=== PATIENT | female | born 1960 | race Caucasian/White ===

== ENCOUNTER 2019-04-25 13:30 | Outpatient (CLI) | payer MEDICARE, MEDICAID, SELFPAY | END 2019-04-25 13:31 | disposition home or self-care (01) | LOC: RHEOACUTE 05-12 14:51 | PROVIDERS: Family Provider Family Medicine; PCP Family Medicine; Visit Provider Internal Medicine Rheumatology | DX: M81.0 Age-related osteoporosis without current pathological fracture (principal) | CPT/HCPCS: 96372; J0897 ==

== ENCOUNTER 2019-10-27 13:57 | Outpatient (CLI) | payer MEDICARE, MEDICAID, SELFPAY ==
[2019-10-27 14:00] VITALS: BP 130/79; PULSE 70; RESP 16; TEMP 36.6; O2SAT 97
[2019-10-27] MEDS: denosumab 60 mg SDV SUBCUT (14:19)
[2019-10-27 14:40] VITALS: BP 116/74; PULSE 69; RESP 16; TEMP 36.8; O2SAT 97
== END 2019-10-27 13:58 | disposition home or self-care (01) ==
LOC: RHEOACUTE 13:59
PROVIDERS: Family Provider Family Medicine; PCP Family Medicine; Visit Provider Internal Medicine Rheumatology
DX: M81.0 Age-related osteoporosis without current pathological fracture (principal)
CPT/HCPCS: 96372; J0897

== ENCOUNTER 2020-05-19 11:43 | Outpatient (CLI) | payer MEDICARE, MEDICAID, SELFPAY ==
[2020-05-19] MEDS: denosumab 60 mg SDV SUBCUT (12:15)
== END 2020-05-19 11:44 | disposition home or self-care (01) ==
LOC: ONCMED 11:49
PROVIDERS: Family Provider Family Medicine; PCP Family Medicine; Visit Provider Internal Medicine Medical Oncology
DX: M81.0 Age-related osteoporosis without current pathological fracture (principal)
CPT/HCPCS: 96372; J0897

== ENCOUNTER 2020-11-18 14:49 | Outpatient (CLI) | payer MEDICARE, MEDICAID, SELFPAY ==
[2020-11-18 14:59] VITALS: BP 155/75; PULSE 66; RESP 20; TEMP 36; O2SAT 97
[2020-11-18] MEDS: denosumab 60 mg SDV SUBCUT (15:06)
== END 2020-11-18 14:50 | disposition home or self-care (01) ==
LOC: ONCMED 14:53
PROVIDERS: PCP Family Medicine; Visit Provider Family Medicine
DX: M81.0 Age-related osteoporosis without current pathological fracture (principal); Z79.899 Other long term (current) drug therapy
CPT/HCPCS: 96372; J0897

== ENCOUNTER → 2020-12-24 09:23 | Outpatient (BNVA) | payer MEDICARE, MEDICAID, SELFPAY | PROVIDERS: PCP Family Medicine; Visit Provider Internal Medicine | DX: R79.82 Elevated C-reactive protein (CRP) (principal); M25.50 Pain in unspecified joint; Z79.899 Other long term (current) drug therapy; Z11.59 Encounter for screening for other viral diseases; F17.210 Nicotine dependence, cigarettes, uncomplicated | CPT/HCPCS: 36415; 99203; 99204 ==

== ENCOUNTER 2020-12-24 11:24 | Outpatient (CLI) | payer MEDICARE, MEDICAID, SELFPAY ==
--- NOTE | 2020-12-24 11:39 | XR_ITS ---
WS: [id number] RIGHT HAND: 2 VIEW(S) TECHNIQUE: PA and lateral. HISTORY: M25.50 - Pain in unspecified joint COMPARISON: None available. No acute fracture or dislocation. No soft tissue edema. Very mild interphalangeal joint space narrowing. No erosions. XR/XR hand RT 2V [id number] IMPRESSION: Mild interphalangeal joint space narrowing.
--- NOTE | 2020-12-24 11:39 | XR_ITS ---
WS: [id number] LEFT HAND: 2 VIEW(S) TECHNIQUE: PA and lateral. HISTORY: M25.50 - Pain in unspecified joint COMPARISON: None available. No acute fracture or dislocation. Mild interphalangeal joint space narrowing. No erosions or edema. Chronic fracture with healing at the ulnar styloid. XR/XR hand LT 2V [id number] IMPRESSION: Very mild interphalangeal joint space narrowing.
--- NOTE | 2020-12-24 11:39 | XR_ITS ---
WS: [id number] RIGHT FOOT: 2 VIEW(S) TECHNIQUE: AP and lateral. HISTORY: M25.50 - Pain in unspecified joint COMPARISON: None available. Diffuse mild osteopenia. Hammertoe deformities. Hardware in the distal fibula. No erosions. Mild interphalangeal joint space n arrowing. No soft tissue abnormality or bone destruction. XR/XR foot RT 2V [id number] IMPRESSION: Mild osteoarthritis. No erosions.
--- NOTE | 2020-12-24 11:39 | XR_ITS ---
WS: [id number] LEFT FOOT: 2 VIEW(S) TECHNIQUE: AP and lateral. HISTORY: M25.50 - Pain in unspecified joint COMPARISON: None available. No acute fracture or dislocation. Mild hammertoe deformities. No erosions. No soft tissue edema or subluxation. Small calcaneal spur. XR/XR foot LT 2V [id number] IMPRESSION: Small calcaneal spur. No erosions.
== END 2020-12-24 11:25 | disposition home or self-care (01) ==
LOC: RADWPI 11:39
PROVIDERS: PCP Family Medicine; Visit Provider Internal Medicine
DX: M25.50 Pain in unspecified joint (principal); Z11.59 Encounter for screening for other viral diseases
CPT/HCPCS: 73120; 73620; 82550; 82607; 82728; 82784; 83516; 83540; 83735; 84100; 86140; 86160; 86162; 86235; 86255; 86376; 86704; 86803; 87340

== ENCOUNTER 2021-05-04 09:36 | Outpatient (CLI) | payer MEDICARE, MEDICAID, SELFPAY ==
--- NOTE | 2021-05-04 09:53 | MM_ITS ---
WS: [id number] BILATERAL DIGITAL SCREENING MAMMOGRAPHY WITH CAD CLINICAL INFORMATION: SCREENING HISTORY: Screening mammogram. No current complaints. COMPARISON: TECHNIQUE: Bilateral CC and MLO views. FINDINGS: Scattered fibroglandular densities bilaterally. Single punctate calcification left breast. No suspici ous focal mass, asymmetry, calcifications, or architectural distortion. No evidence of malignancy. MM/[place] [id number] IMPRESSION: BI-RADS: 2-Benign FOLLOW UP: 1 Year Follow-up Recommend return to annual screening mammography.
== END 2021-05-04 09:37 | disposition home or self-care (01) ==
LOC: RADSHAW 09:49
PROVIDERS: PCP Family Medicine; Visit Provider Family Medicine
DX: Z12.31 Encounter for screening mammogram for malignant neoplasm of breast (principal)
CPT/HCPCS: 77067

== ENCOUNTER 2021-05-26 12:47 | Outpatient (CLI) | payer MEDICARE, MEDICAID, SELFPAY ==
[2021-05-26 13:01] VITALS: BP 144/79; PULSE 70; RESP 18; TEMP 36.5; O2SAT 97
[2021-05-26] MEDS: denosumab 60 mg SDV SUBCUT (13:12)
[2021-05-26 13:20] VITALS: BP 147/82; PULSE 72; RESP 18; TEMP 36.4; O2SAT 96
== END 2021-05-26 12:48 | disposition home or self-care (01) ==
PROVIDERS: PCP Family Medicine; Referring Provider Family Medicine; Visit Provider Family Medicine
DX: M81.0 Age-related osteoporosis without current pathological fracture (principal)
CPT/HCPCS: 96372; J0897

== ENCOUNTER → 2021-10-18 08:10 | Outpatient (BNVA) | payer MEDICARE, MEDICAID, SELFPAY | PROVIDERS: PCP Family Medicine; Referring Provider Family Medicine; Visit Provider Podiatrist Foot & Ankle Surgery | DX: L60.3 Nail dystrophy (principal); Q82.8 Other specified congenital malformations of skin; L60.8 Other nail disorders; E11.42 Type 2 diabetes mellitus with diabetic polyneuropathy; M20.41 Other hammer toe(s) (acquired), right foot; M20.42 Other hammer toe(s) (acquired), left foot | CPT/HCPCS: 11721; 17110; 99204 ==

== ENCOUNTER 2021-11-24 11:26 | Outpatient (CLI) | payer MEDICARE, MEDICAID, SELFPAY ==
[2021-11-24 12:06] VITALS: BP 166/75; PULSE 56; RESP 18; TEMP 36.2; O2SAT 97
[2021-11-24] MEDS: denosumab 60 mg SDV SUBCUT (12:11)
[2021-11-24 12:19] VITALS: BP 133/74; PULSE 56; RESP 18; TEMP 36.2; O2SAT 96
== END 2021-11-24 11:27 | disposition home or self-care (01) ==
PROVIDERS: PCP Family Medicine; Referring Provider Family Medicine; Visit Provider Family Medicine
DX: M81.0 Age-related osteoporosis without current pathological fracture (principal)
CPT/HCPCS: 96372; J0897

== ENCOUNTER → 2022-01-17 08:35 | Outpatient (BNVA) | payer MEDICARE, MEDICAID, SELFPAY | PROVIDERS: PCP Family Medicine; Visit Provider Podiatrist Foot & Ankle Surgery | DX: E11.8 Type 2 diabetes mellitus with unspecified complications (principal); M20.41 Other hammer toe(s) (acquired), right foot; M20.42 Other hammer toe(s) (acquired), left foot; L60.3 Nail dystrophy; E11.42 Type 2 diabetes mellitus with diabetic polyneuropathy; L60.8 Other nail disorders; Q82.8 Other specified congenital malformations of skin | CPT/HCPCS: 11721 ==

== ENCOUNTER → 2022-03-28 08:21 | Outpatient (BNVA) | payer MEDICARE, MEDICAID, SELFPAY | PROVIDERS: PCP Family Medicine; Visit Provider Podiatrist Foot & Ankle Surgery | DX: E11.42 Type 2 diabetes mellitus with diabetic polyneuropathy (principal); M20.41 Other hammer toe(s) (acquired), right foot; M20.42 Other hammer toe(s) (acquired), left foot; L60.3 Nail dystrophy; L60.8 Other nail disorders; Z79.4 Long term (current) use of insulin | CPT/HCPCS: 11721 ==

== ENCOUNTER → 2022-06-07 07:45 | Outpatient (BNVA) | payer MEDICARE, MEDICAID, SELFPAY | PROVIDERS: PCP Family Medicine; Referring Provider Family Medicine; Visit Provider Internal Medicine | DX: E11.42 Type 2 diabetes mellitus with diabetic polyneuropathy (principal); E78.2 Mixed hyperlipidemia; Z79.4 Long term (current) use of insulin | CPT/HCPCS: 99204 ==

== ENCOUNTER → 2022-07-04 07:52 | Outpatient (BNVA) | payer MEDICARE, MEDICAID, SELFPAY | PROVIDERS: PCP Family Medicine; Visit Provider Podiatrist Foot & Ankle Surgery | DX: E11.8 Type 2 diabetes mellitus with unspecified complications (principal); M20.41 Other hammer toe(s) (acquired), right foot; M20.42 Other hammer toe(s) (acquired), left foot; L60.3 Nail dystrophy; E11.42 Type 2 diabetes mellitus with diabetic polyneuropathy; L60.8 Other nail disorders; Z79.4 Long term (current) use of insulin | CPT/HCPCS: 11721 ==

== ENCOUNTER 2022-09-01 10:16 | Oncology outpatient (recurring) (ONCR) | payer MEDICARE, MEDICAID, SELFPAY ==
[2022-09-01] MEDS: denosumab 60 mg SDV SUBCUT (10:54)
== END 2022-09-13 23:59 | disposition home or self-care (01) ==
LOC: ONCMED 10:18
PROVIDERS: PCP Family Medicine; Visit Provider Family Medicine
DX: M81.0 Age-related osteoporosis without current pathological fracture (principal)
CPT/HCPCS: 96372; J0897

== ENCOUNTER → 2022-09-05 08:21 | Outpatient (BNVA) | payer MEDICARE, MEDICAID, SELFPAY | PROVIDERS: PCP Family Medicine; Visit Provider Internal Medicine | DX: E78.2 Mixed hyperlipidemia (principal); E11.42 Type 2 diabetes mellitus with diabetic polyneuropathy; Z79.4 Long term (current) use of insulin | CPT/HCPCS: 99214 ==

== ENCOUNTER → 2022-10-18 07:37 | Outpatient (BNVA) | payer MEDICARE, MEDICAID, SELFPAY | PROVIDERS: PCP Family Medicine; Visit Provider Podiatrist Foot & Ankle Surgery | DX: E11.8 Type 2 diabetes mellitus with unspecified complications (principal); M20.41 Other hammer toe(s) (acquired), right foot; M20.42 Other hammer toe(s) (acquired), left foot; L60.3 Nail dystrophy; E11.42 Type 2 diabetes mellitus with diabetic polyneuropathy; L60.8 Other nail disorders; Z79.4 Long term (current) use of insulin | CPT/HCPCS: 99213 ==

== ENCOUNTER 2023-01-15 06:00 | Outpatient (CLI) | payer MEDICARE, MEDICAID, SELFPAY | END 2023-01-15 06:01 | disposition home or self-care (01) | LOC: SPT 02-02 09:51 | PROVIDERS: PCP Family Medicine; Visit Provider Podiatrist Foot & Ankle Surgery | DX: Z46.89 Encounter for fitting and adjustment of other specified devices (principal); M72.2 Plantar fascial fibromatosis | CPT/HCPCS: 97760; L4397 ==

== ENCOUNTER → 2023-01-15 07:49 | Outpatient (BNVA) | payer MEDICARE, MEDICAID, SELFPAY | PROVIDERS: PCP Family Medicine; Visit Provider Podiatrist Foot & Ankle Surgery | DX: M20.41 Other hammer toe(s) (acquired), right foot (principal); M20.42 Other hammer toe(s) (acquired), left foot; L60.3 Nail dystrophy; E11.42 Type 2 diabetes mellitus with diabetic polyneuropathy; L60.8 Other nail disorders; M72.2 Plantar fascial fibromatosis; Z79.4 Long term (current) use of insulin | CPT/HCPCS: 11721; 99213 ==

== ENCOUNTER 2023-01-30 09:07 | Outpatient (CLI) | payer MEDICARE, MEDICAID, SELFPAY ==
--- NOTE | 2023-01-30 09:11 | NM_ITS ---
WS: [id number] NUCLEAR MEDICINE HIDA SCAN CLINICAL INFORMATION: ABDOMINAL PAIN TECHNIQUE: Following intravenous administration of 8.2 mCi of technetium 99m mebrofenin, images of th e abdomen were obtained over the course of 30 minutes. Next, gallbladder ejection fraction was determ ined by obtaining preprandial and one-hour postprandial images of the gallbladder following oral samina stion of Ensure at 30 minutes. COMPARISON: Ultrasound 01/10/2023 FINDINGS: Normal hepatic uptake and hepatic excretion. Gallbladder is visualized by 15 minutes. No evidence of acute cholecystitis. Normal common bile duct and small bowel activity. Gallbladder ejection fraction 81% within normal limits. No evidence of chronic cholecystitis. IMPRESSION: 1. No evidence of acute or chronic cholecystitis. 2. Gallbladder ejection fraction 81% within normal limits.
== END 2023-01-30 09:08 | disposition home or self-care (01) ==
LOC: RAD 09:09
PROVIDERS: PCP Family Medicine; Visit Provider Family Medicine
DX: R10.9 Unspecified abdominal pain (principal)
CPT/HCPCS: 78227; A9537

== ENCOUNTER 2023-04-25 14:05 | Oncology outpatient (recurring) (ONCR) | payer MEDICARE, MEDICAID, SELFPAY ==
[2023-04-25] MEDS: denosumab 60 mg SDV SUBCUT (14:55)
[2023-04-25 14:58] VITALS: BP 144/55; PULSE 66; RESP 17; O2SAT 97
== END 2023-05-16 23:59 | disposition home or self-care (01) ==
PROVIDERS: PCP Family Medicine; Visit Provider Family Medicine
DX: M81.0 Age-related osteoporosis without current pathological fracture (principal)
CPT/HCPCS: 96372; J0897

== ENCOUNTER → 2023-05-15 08:15 | Outpatient (BNVA) | payer MEDICARE, MEDICAID, SELFPAY | PROVIDERS: PCP Family Medicine; Visit Provider Podiatrist Foot & Ankle Surgery | DX: M20.41 Other hammer toe(s) (acquired), right foot (principal); M20.42 Other hammer toe(s) (acquired), left foot; L60.3 Nail dystrophy; E11.42 Type 2 diabetes mellitus with diabetic polyneuropathy; M72.2 Plantar fascial fibromatosis; Z79.4 Long term (current) use of insulin | CPT/HCPCS: 99204; 99213 ==

== ENCOUNTER 2023-06-27 11:16 | Outpatient (CLI) | payer OTHER, MEDICAID, SELFPAY ==
--- NOTE | 2023-06-27 11:20 | USCV_ITS ---
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
== END 2023-06-27 11:17 | disposition home or self-care (01) ==
LOC: RAD 11:16
PROVIDERS: PCP Family Medicine; Visit Provider Family Medicine
DX: I73.9 Peripheral vascular disease, unspecified (principal)
CPT/HCPCS: 93922

== ENCOUNTER 2023-07-17 12:18 | Emergency (ER) | payer MEDICARE, MEDICAID, SELFPAY ==
[2023-07-17 12:21] VITALS: BP 193/92; PULSE 60; RESP 16; TEMP 36.9; O2SAT 98; BMI 43.9
--- NOTE | 2023-07-17 12:33 | XR_ITS ---
WS: [id number] Examination: XR chest 1V portable [id number] Reason for Exam: dizzy Date: July 17, 2023 Comparison: Findings: Large nonenlarged on this AP portable film. The mediastinum not widened. The rosalind are not large There is no evidence of pulmonary edema or large pleural effusion. Impression: No acute lung process is appreciated.
--- NOTE | 2023-07-17 12:34 | ECG_ITS ---
[facility] Test Date: 2023-07-17 Pat Name: Nikki Guadalupe Department: Room: Gender: Female Dopster: : 1960 Requested By: Freddy Rodas Order Number: [id number] Olena MD: Garrison Coffey M.D. Measurements Intervals [place] Rate: 58 P: 42 VA: 184 QRS: 42 QRSD: 86 T: 90 QT: 384 QTc: 377 Interpretive Statements SINUS BRADYCARDIA Compared to ECG 04/03/2018 13:57:04 Sinus rhythm no longer present T-wave abnormality no longer present Electronically Signed On 07-17-2023 14:11:12 CDT by Garrison Coffey M.D. [id number]
[2023-07-17 12:59] LABS: Basophils # 0.1 10^3/uL (0.0-0.1); Basophils % 1.3 %; Eosinophils # 0.2 10^3/uL (0.0-0.8); Eosinophils % 3.7 %; Hematocrit 38.8 % (36-47); Lymphocytes # 1.5 10^3/uL (0.8-4.8); Lymphocytes % 23.6 %; Mean Corpuscular HGB Conc 34.8 g/dL (30-55); Mean Corpuscular Hemoglobin 32.1 pg (27-33); Mean Corpuscular Volume 92.4 fl (85-98); Mean Platelet Volume 10.8 fL (7.4-10.4); Monocytes # 0.5 10^3/uL (0.2-0.9); Monocytes % 8.5 %; Neutrophils # 3.88 10^3/uL (1.8-7.7); Neutrophils % 62.4 %; Nucleated Red Blood Cells % 0 %; Platelet Count 167 10^3/cmm (157-399); Red Cell Distribution Width 12.6 % (12.1-15.1); White Blood Count 6.22 10^3/uL (3.29-11.43)
[2023-07-17 13:12] LABS: Alanine Aminotransferase 16 U/L (0-33); Albumin Level 3.8 g/dL (3.5-5.2); Alkaline Phosphatase 83 U/L (35-105); Anion Gap 15.7 (5-19); Aspartate Amino Transferase 21 U/L (0-32); Blood Urea Nitrogen 16 mg/dL (8-23); Calcium 8.9 mg/dL (8.5-10.5); Carbon Dioxide 26 mmol/L (22-29); Chloride 104 mmol/L (98-107); Creatinine Clr Calc Pharmacy 136.6994; Globulin 2.6 g/dL (1.3-4.6); Glomerular Filtration Rate 101.6 mL/min (90-130); Glucose 250 mg/dL (65-115); Osmolality Calculated 302 mOsm/kg (285-295); Potassium 4.7 mmol/L (3.5-5.1); Sodium 141 mmol/L (136-145); Total Bilirubin 0.3 mg/dL (0.15-1.2); Total Protein 6.4 g/dL (6.6-8.7)
--- NOTE | 2023-07-17 13:37 | CT_ITS ---
WS: [id number] CT HEAD TECHNIQUE: Noncontrast CT of the head obtained from the skullbase to the vertex. CLINICAL INFORMATION: Vertigo, gait abnormality COMPARISON: 2019 DLP: 1117.[address] scans at [facility] use at least one of these dose optimization techniques: automated e xposure control; mA and/or kV adjustment per patient size (includes targeted exams where dose is matc hed to clinical indication); or iterative reconstruction. FINDINGS: No evidence of intracranial hemorrhage or mass effect. Ventricular system and basal cisterns are peña nt. Mild small vessel changes with mild parenchymal volume loss. No extra-axial fluid collections. No evidence of mass or mass effect. Intracranial vascular calcification. Paranasal sinuses and mastoid air cells are well aerated. .Normal visualized soft tissues. IMPRESSION: 1. No evidence of intracranial hemorrhage or mass effect. 2. No acute intracranial findings.
--- NOTE | 2023-07-17 13:52 | W.ED.DIZZY ---
HPI - Dizziness General: Chief Complaint: Dizziness Stated Complaint: dizzy Time Seen by Provider: 07/17/23 13:36 History of Present Illness: HPI Narrative: 62-year-old female with history of epilepsy insulin-dependent diabetes mellitus hyperlipidemia, and hypertension who presents the emergency room with vertigo symptoms. She said this has been going on for couple of months now. She is been to see her doctor and they thought maybe it was related to her epilepsy but it has persisted and become daily and lasting most the day now. She went to a walk-in clinic and they sent her to the emergency room. No focal motor deficits. No altered mental status. She is not hypertensive on presentation. Review of Systems Narrative: Constitutional symptoms: Negative except as documented in HPI. Skin symptoms: Negative except as documented in HPI. Eye symptoms: Negative except as documented in HPI. ENMT symptoms: Negative except as documented in HPI. Respiratory symptoms: Negative except as documented in HPI. Cardiovascular symptoms: Negative except as documented in HPI. Gastrointestinal symptoms: Negative except as documented in HPI. Genitourinary symptoms: Negative except as documented in HPI. Musculoskeletal symptoms: Negative except as documented in HPI. Neurologic symptoms: Negative except as documented in HPI. Psychiatric symptoms: Negative except as documented in HPI. Endocrine symptoms: Negative except as documented in HPI. [facility] ED PFSH: Family History Mother CAD (coronary artery disease) Brother CAD (coronary artery disease) Denies family history of Diabetes Social History Smoking and tobacco/nicotine status: current every day tobacco/nicotine user cigarettes Packs smoked per day: 1 Alcohol intake: never Physical Exam Narrative: EXAM NARRATIVE: General: Alert, no acute distress. Skin: Warm, dry. Head: Normocephalic, atraumatic. Neck: Supple, trachea midline. Eye: Extraocular movements are intact. Ears, nose, mouth and throat: mucosa moist. Cardiovascular: Regular, Normal peripheral perfusion. Respiratory: Lungs are clear to auscultation, respirations are non-labored, breath sounds are equal, Symmetrical chest wall expansion. Gastrointestinal: Soft, Nontender, Non distended, Normal bowel sounds. Musculoskeletal: Normal ROM, no deformity. Neurological: Alert and oriented, No focal neurological deficit observed. Psychiatric: Cooperative, appropriate mood & affect. Course Vital Signs: Vital signs: Vital Signs Temperature 98.4 F 07/17/23 12:21 Pulse Rate 62 07/17/23 14:00 Respiratory Rate 16 07/17/23 14:00 Blood Pressure 193/82 07/17/23 14:00 Pulse Oximetry 97 07/17/23 14:00 Oxygen Delivery Me thod Room Air 07/17/23 14:00 MDM - Dizziness Medical Decision Making Medical decision making: Differential diagnosis including but not limited to and based on the above HPI, review of systems and physical exam: In this patient with vertigo symptoms for 2 months would either be central or peripheral vertigo. It has been fairly persistent recently so we will rule out central with CT scan. Basic lab work is being done. Orders placed to evaluate differential diagnosis based on the above differential, HPI and physical exam Lab Review: Laboratory results were reviewed and interpreted by myself the emergency room physician. Lab work unremarkable. wbc 6. hgb 13.5 bun/cr 16 Chest x-ray: No acute process. No infiltrate. No pneumothorax. No cardiomegaly. This was reviewed and interpreted by myself the ER physician. CT head: No acute intracranial process. no intracranial hemorrhage, no evidence of infarct. no evidence of acute fracture.This was reviewed and interpreted by myself the ER physician. Reexamination: Patient remained stable. No focal motor deficits. No altered mental status. No increased work of breathing. Lab Data 07/17/23 12:48 07/17/23 12:48 Laboratory Results WBC 6.22 10^3/uL (3.29-11.43) 07/17/23 12:48 RBC 4.20 10^6/uL (3.85-5.65) 07/17/23 12:48 Hgb 13.50 g/dL (11.27-16.99) 07/17/23 12:48 Hct 38.8 % (36-47) 07/17/23 12:48 MCV 92.4 fl (85-98) 07/17/23 12:48 MCH 32.1 pg (27-33) 07/17/23 12:48 MCHC 34.8 g/dL (30-55) 07/17/23 12:48 RDW 12.6 % (12.1-15.1) 07/17/23 12:48 Plt Count 167 10^3/cmm (157-399) 07/17/23 12:48 MPV 10.8 fL (7.4-10.4) H 07/17/23 12:48 Neut % (Auto) 62.4 % 07/17/23 12:48 Lymph % (Auto) 23.6 % 07/17/23 12:48 Murray % (Auto) 8.5 % 07/17/23 12:48 Eos % (Auto) 3.7 % 07/17/23 12:48 Baso % (Auto) 1.3 % 07/17/23 12:48 Neut # (Auto) 3.88 10^3/uL (1.8-7.7) 07/17/23 12:48 Lymph # (Auto) 1.5 10^3/uL (0.8-4.8) 07/17/23 12:48 Murray # (Auto) 0.5 10^3/uL (0.2-0.9) 07/17/23 12:48 Eos # (Auto) 0.2 10^3/uL (0.0-0.8) 07/17/23 12:48 Baso # (Auto) 0.1 10^3/uL (0.0-0.1) 07/17/23 12:48 Nucleated RBC % (auto) 0 % 07/17/23 12:48 Nucleated RBCs # 0.0 /100WBC 07/17/23 12:48 Sodium 141 mmol/L (136-145) 07/17/23 12:48 Potassium 4.7 mmol/L (3.5-5.1) 07/17/23 12:48 Chloride 104 mmol/L (98-107) 07/17/23 12:48 Carbon Dioxide 26 mmol/L (22-29) 07/17/23 12:48 Anion Gap 15.7 (5-19) 07/17/23 12:48 BUN 16 mg/dL (8-23) 07/17/23 12:48 Creatinine 0.6 mg/dL (0.5-0.9) 07/17/23 12:48 GFR Calculation 101.6 mL/min (90-130) 07/17/23 12:48 Glucose 250 mg/dL (65-115) H 07/17/23 12:48 Calculated Osmolality 302 mOsm/kg (285-295) H 07/17/23 12:48 Calcium 8.9 mg/dL (8.5-10.5) 07/17/23 12:48 Total Bilirubin 0.3 mg/dL (0.15-1.2) 07/17/23 12:48 AST 21 U/L (0-32) 07/17/23 12:48 ALT 16 U/L (0-33) 07/17/23 12:48 Alkaline Phosphatase 83 U/L (35-105) 07/17/23 12:48 Total Protein 6.4 g/dL (6.6-8.7) L 07/17/23 12:48 Albumin 3.8 g/dL (3.5-5.2) 07/17/23 12:48 Globulin 2.6 g/dL (1.3-4.6) 07/17/23 12:48 All radiology interpretation(s) finalized by discharge Other Data Assessment and plan: - Discharged home - Discussed findings and plan with patient. Answered any questions. - All laboratory values were reviewed and interpreted personally by myself, the ER physician - All imaging was reviewed and interpreted personally by myself, the ER physician. - Evaluation and treatment of this problem were appropriate in the emergency setting Discharge Plan Discharge Patient Disposition: Home Clinical Impression: Vertigo Condition: Stable Prescriptions: New meclizine 25 mg tablet 25 mg PO QID PRN (Reason: dizziness) Qty: 20 0RF No Action Prolia 60 mg/mL syringe SUBCUT Patient Comments: twice a year Tresiba FlexTouch U-100 100 unit/mL (3 mL) insulin pen 75 unit SUBCUT DAILY insulin lispro [Humalog U-100 Insulin] 100 unit/mL solution 20 unit SUBCUT TID phenytoin sodium extended [Dilantin Extended] 100 mg capsule 200 mg PO TID Rx Instructions: 1 cap am, 2 cap noon, 3 cap pm carbamazepine 200 mg capsule, ER multiphase 12 hr 200 mg PO TID Rx Instructions: 1 tab am, 1 tab noon, 2 tabs pm metoprolol succinate 100 mg tablet extended release 24 hr 100 mg PO BID rosuvastatin 10 mg capsule, sprinkle 10 mg PO DAILY valsartan 320 mg tablet 160 mg PO DAILY Myrbetriq 25 mg tablet extended release 24 hr 25 mg PO DAILY omeprazole 20 mg capsule,delayed release(DR/EC) 40 mg PO DAILY cholecalciferol (vitamin D3) 50 mcg (2,000 unit) tablet 100 mcg PO DAILY Centrum Silver Women 8 mg iron-400 mcg-300 mcg tablet 1 tab PO DAILY gabapentin 300 mg capsule 600 mg PO TID (DME) Night Splint See Rx Instructions .Route .MEDSUPPLY Qty: 1 0RF Rx Instructions: As directed sertraline 100 mg tablet PO alprazolam 0.25 mg tablet 0.25 mg PO DAILY diclofenac sodium [Voltaren Arthritis Pain] 1 % gel 2 g topical QID Qty: 100 0RF Rx Instructions: apply to single elbow, wrist or hand; for hand includes palm/fingers/back of hand Mounjaro 2.5 mg/0.5 mL pen injector 2.5 mg SUBCUT Q7D 30 Days Qty: 2.5 0RF Rx Instructions: 2.5mg weekly for 1month; 5mg weekly for 1month; 7.5mg weekly and continue Mounjaro 5 mg/0.5 mL pen injector 5 mg SUBCUT Q7D 30 Days Qty: 2.5 0RF Rx Instructions: 5mg weekly for 1 month then 7.5mg weekly and continue Mounjaro 7.5 mg/0.5 mL pen injector 7.5 mg SUBCUT Q7D 30 Days Qty: 2.5 0RF Rx Instructions: 7.5mg weekly and continue (DME) Diabetic Shoes with 3 pair of custom accommodative insoles See Rx Instructions .Route .MEDSUPPLY Qty: 1 0RF Rx Instructions: As directed by Daily Living Medical Discharge Orders: Discharge ED (Routine); Ordered 07/17/23 Ordered By: Graciela Rodriguez Referrals: Andrew Solitario MD [Primary Care Provider] - (You have been screened and evaluated and felt safe for discharge. Health conditions do change or evolve sometimes and as such it is important that you follow up with your Primary Doctor to be re checked, 3-5 days is a general good time frame for follow up. You are always welcome to return to the ED for re assessment if your symptoms are worsening or you have new concerns) Discharge Diet: Usual diet Discharge Activity: Increase activity as tolerated Patient Instructions: Vertigo (ED) Coding Level of Care Code ED Certified Medicine Aide for Taty Springer
[2023-07-17] MEDS: sodium chloride 0.9% 1,000 ML 999 ML IV (13:58)
[2023-07-17] MEDS: meclizine 25 mg tablet 50 MG PO (13:58)
[2023-07-17 14:00] VITALS: BP 193/82; PULSE 62; RESP 16; O2SAT 97
[2023-07-17 14:43] VITALS: BP 185/79; RESP 18
== END 2023-07-17 14:44 | disposition home or self-care (01) ==
PROVIDERS: Emergency Medicine; Emergency Provider Emergency Medicine; PCP Family Medicine
DX: R42 Dizziness and giddiness (principal); Z79.4 Long term (current) use of insulin; F17.210 Nicotine dependence, cigarettes, uncomplicated
CPT/HCPCS: 36415; 70450; 71045; 80053; 85025; 93005; 99285; J7030; J8597

== ENCOUNTER 2023-12-26 13:15 | Outpatient (CLI) | payer MEDICARE, MEDICAID, SELFPAY ==
--- NOTE | 2023-12-26 13:16 | USCV_ITS ---
Nikki Guadalupe Age: 63 Gender: F : 1960 Exam Date: 12/26/2023 13:35 Ordering Phys: Rey Kimble MD ([email or web address]) Technologist: Exam Location[place] [facility] [place]ication: cp sob BP: 170 / 80 HR: 66 Rhythm: Sinus Technical Quality: Adequate MEASUREMENTS (Male / Female) Normal Values 2D ECHO LV Diastolic Diameter PLAX 5.1 cm 4.2 - 5.9 / 3.9 - 5.3 cm IVS Diastolic Thickness 1.5 cm 0.6 - 1.0 / 0.6 - 0.9 cm IVS Systolic Thickness 2.1 cm LVPW Diastolic Thickness 1.4 cm 0.6 - 1.0 / 0.6 - 0.9 cm LVPW Systolic Thickness 1.7 cm LVOT Diameter 2.0 cm LV Ejection Fraction 2D Teich 67.0 % LV Ejection Fraction MOD 2C 59.3 % LV Ejection Fraction 2C AL 61.1 % LA Diameter 3.8 cm RA Systolic Volume 4C AL 35.0 ml RA Systolic Volume 4C MOD 33.9 ml Aorta at Sinotubular Diameter 2.9 cm M-MODE LA Ao Ratio MM 1.4 AV Cusp Separation MM 2.3 cm DOPPLER MV Peak Velocity 118.0 cm/s MV Area PHT 2.4 cm squared Mitral E to A Ratio 1.3 TR Peak Velocity 148.0 cm/s TR Peak Gradient 8.8 mmHg TV Peak E Velocity 86.0 cm/s Right Atrial Pressure 3.0 mmHg Pulmonary Artery Systolic Pressu 11.8 mmHg PV Peak Velocity 117.0 cm/s FINDINGS Left Ventricle No regional wall motion abnormalities. Normal left ventricular size and systolic function, EF 61% . Right Ventricle The right ventricle is normal in size and function. Right Atrium The right atrium is normal in size. Left Atrium Normal left atrial size. Mitral Valve Thickened mitral valve. Trace mitral valve regurgitation. Aortic Valve Thickened aortic valve. Tricuspid Valve Trace tricuspid valve regurgitation. Pulmonic Valve Pulmonic valve not well visualized. Pericardium Normal pericardium without effusion. Aorta Normal ascending aorta dimension. IVC Inferior vena cava not visualized. CONCLUSIONS Normal left ventricular size and systolic function, EF 61% . No regional wall motion abnormalities. Thickened mitral valve. Trace mitral valve regurgitation. Trace tricuspid valve regurgitation. Thickened aortic valve. There is no pericardial effusion. There are no intracardiac masses. No similar previous studies are available for comparison Dr Rey Kimble MD [facility] (Electronically Signed) Final Date: 30 December 2023 18:32 S
--- NOTE | 2023-12-26 13:51 | CTR_ITS ---
PROCEDURE INFORMATION: Exam: CTA Head Without And With Contrast, Arteriography Exam date and time: 12/26/2023 2:09 PM Age: 63 years old Clinical indication: Dizziness and giddiness; Patient HX: Dizziness, unsteady gait, multiple falls TECHNIQUE: Imaging protocol: Computed tomographic angiography of the head without and with contrast. Exam focused on the arteries. 3D rendering (Not supervised by radiologist): MIP and/or 3D reconstructed images were created by the technologist. Radiation optimization: All CT scans at this facility use at least one of these dose optimization techniques: automated exposure control; mA and/or kV adjustment per patient size (includes targeted exams where dose is matched to clinical indication); or iterative reconstruction. Contrast material: OMNI 350; Contrast volume: 100 ml; Contrast route: INTRAVENOUS (IV); COMPARISON: CT head wo con* [id number] 07/17/2023 1:42 PM RADIATION DOSE METRICS: Total DLP (mGy-cm): 1306.65 FINDINGS: ANTERIOR CIRCULATION: Right internal carotid artery: Intracranial segment is patent with no significant stenosis or occlusion. No aneurysm. Right middle cerebral artery: No occlusion or significant stenosis. No aneurysm. Right anterior cerebral artery: No occlusion or significant stenosis. No aneurysm. Left internal carotid artery: Intracranial segment is patent with no significant stenosis. No aneurysm. Left middle cerebral artery: No occlusion or significant stenosis. No aneurysm. Left anterior cerebral artery: No occlusion or significant stenosis. No aneurysm. POSTERIOR CIRCULATION: Right vertebral artery: No occlusion or significant stenosis. No aneurysm. Left vertebral artery: Short-segment high-grade stenosis with likely focal occlusion, axial images 186 and 187 of series 9. No aneurysm. Basilar artery: No occlusion or significant stenosis. No aneurysm. Right posterior cerebral artery: No occlusion or significant stenosis. No aneurysm. Left posterior cerebral artery: origin. No occlusion or significant stenosis. No aneurysm. HEAD: Brain: No hemorrhage. No evidence of acute territorial infarction. Mild bilateral cerebral white matter hypoattenuation likely on the basis of chronic microvascular ischemic change. No mass effect. Cerebral ventricles: No ventriculomegaly. Bones: Unremarkable. No acute fracture. Paranasal sinuses: Visualized sinuses are normal. No fluid levels. Mastoid air cells: Visualized mastoids are normal. No mastoid effusion. Soft tissues: Unremarkable. PROCEDURE INFORMATION: Exam: CTA Neck With Contrast Exam date and time: 12/26/2023 2:09 PM Age: 63 years old Clinical indication: Dizziness and giddiness; Patient HX: Dizziness, unsteady gait, multiple falls TECHNIQUE: Imaging protocol: Computed tomographic angiography of the neck with contrast. Exam focused on the cervical segments of the vasculature. 3D rendering (Not supervised by radiologist): MIP and/or 3D reconstructed images were created by the technologist. Radiation optimization: All CT scans at this facility use at least one of these dose optimization techniques: automated exposure control; mA and/or kV adjustment per patient size (includes targeted exams where dose is matched to clinical indication); or iterative reconstruction. Contrast material: OMNI 350; Contrast volume: 100 ml; Contrast route: INTRAVENOUS (IV); COMPARISON: 1. CT Thoracic Spine wo IV* [id number] 03/11/2019 3:[address] cervical spin wo con* [id number] 03/11/2019 3:[address] head wo con* [id number] 07/17/2023 1:42 PM RADIATION DOSE METRICS: Total DLP (mGy-cm): 1306.65 FINDINGS: Right common carotid artery: No stenosis. No dissection or occlusion. Right internal carotid artery: Mild atherosclerotic stenosis of the extracranial segment. No dissection or occlusion. Right external carotid artery: Mild proximal atherosclerotic stenosis. Left common carotid artery: No stenosis. No dissection or occlusion. Left internal carotid artery: No stenosis of the extracranial segment. No dissection or occlusion. Left external carotid artery: No occlusion or stenosis of the origin. Right vertebral artery: Limited evaluation proximally in the setting of streak artifact. No convincing stenosis, dissection or occlusion. Left vertebral artery: Limited evaluation proximally in the setting of streak artifact. No convincing stenosis, dissection or occlusion. Lymph nodes: Prominent paratracheal lymph nodes are stable from 2019. Soft tissues: Unremarkable. No significant soft tissue swelling. Bones/joints: Severe compression deformity of the T4 vertebral body appears chronic, progressed from 2019. Mild superior T3 vertebral body compression is stable. Degenerative change along the cervical spine with prior C4-C5 ACDF. Lungs: Mild emphysematous change at the imaged upper lungs. CT/CT angio headneck* [id number] IMPRESSION: 1. Short-segment high-grade left vertebral artery stenosis with likely focal occlusion. 2. No CT evidence of acute territorial infarction, hemorrhage, or mass effect. IMPRESSION: 1. Mild atherosclerotic stenosis of the proximal right ICA and ECA. 2. Chronic appearing severe T4 vertebral body compression deformity progressed from 2019. REFERENCES: NASCET CRITERIA. The degree of stenosis in the cervical segment of the internal carotid artery is based on NASCET criteria. Normal is no stenosis. Mild is less than 50% stenosis. Moderate is 50-69% stenosis. Severe is 70% to 99% stenosis. Total occlusion is no detectable patent lumen.
[2023-12-26] MEDS: iohexol 350 mg/mL 500 mL Btl (per mL) IV (14:28)
== END 2023-12-26 13:16 | disposition home or self-care (01) ==
LOC: RAD 13:16
PROVIDERS: PCP Family Medicine; Visit Provider Family Medicine
DX: I65.02 Occlusion and stenosis of left vertebral artery (principal); S22.040S Wedge compression fracture of fourth thoracic vertebra, sequela; M43.22 Fusion of spine, cervical region; X58.XXXA Exposure to other specified factors, initial encounter; R06.09 Other forms of dyspnea; R07.89 Other chest pain
CPT/HCPCS: 36415; 70496; 70498; 80048; 83880; 93306

== ENCOUNTER 2024-01-24 09:43 | Outpatient (CLI) | payer MEDICARE, MEDICAID, SELFPAY ==
--- NOTE | 2024-01-24 | ECG_ITS ---
[facility] [employer] Test Date: 2024-01-24 Pat Name: Nikki Guadalupe Department: Room: Gender: Female Childcare Provider: : 1960 Requested By: Rey Kimble Order Number: [id number] Olena MD: Rey Kimble M.D. Interpretive Statements PROCEDURE: At the baseline, the EKG revealed normal sinus rhythm with some diffuse nonspecific ST-T changes. The baseline heart was 65 bpm with a blood pressue of 156/89 mm of Hg Lexiscan was infused over a period of 20 seconds. A total of 0.4 milligrams of Lexiscan was infused. The stress phase was continued for a total of 5 minutes. Heart rate at the end of the stress phase was left anterior descending artery bpm with a blood pressure 193/87 mm of Hg. The EKG at the peak infusion revealed no significant changes. Sestamibi was injected 20 seconds after the Lexiscan infusion. Heart rate at the end of the recovery phase was 79 bpm with a blood pressure of 190/78 mm of Hg. CONCLUSION: 1. No significant EKG changes with the LexiScan infusion 2. No LexiScan induced chest pain or cardiac arrhythmia 3. Hypertensive response to Lexiscan infusion 4. Sestamibi/sestamibi perfusion scan pending; see separate report. Lung unchanged pre/post procedure; Intraprocedure shortess of breath; Symptoms resoled by discharge Electronically Signed On 01-27-2024 19:49:13 CDT by Rey Kimble M.D. [email or web address]
[2024-01-24 10:21] VITALS: BMI 42.3
--- NOTE | 2024-01-24 10:24 | NMCV_ITS ---
NM raji perf SPECT r/s* [id number] Nikki Guadalupe Age: 63 Gender: F : 1960 Exam Date: 01/24/2024 10:24 Ordering Phys: Rey Kimble MD ([email or web address]) Technologist: LANNY Castro Exam Location: [facility] Indications: cp STRESS TEST Please see separate stress test report [facility] for full findings IMAGE PROTOCOL Rest/Stress 1 Lexiscan Day Radiopharmaceutical Dose (mCi) Administration Site Administered by Rest: Tc-99m 10.6 IV Cele Sorenson, HYDROELECTRIC POWERPLANT SUPERVISOR Sestamibi Stress:Tc-99m 33 IV Cele Shaygle, HYDROELECTRIC POWERPLANT SUPERVISOR Sestamibi Rest: 01/24/2024 60 Discovery 630 Stress: 01/24/2024 30 Discovery 630 0.4mg Lexiscan. Images obtained in supine and prone position. SPECT RESULTS Technical Quality: Good Raw Data Analysis: Normal Image Corrections: No attenuation or motion correction applied Summed Stress Score: 9 Summed Rest Score: 3 Summed Difference Score: 7 PERFUSION FINDINGS Moderate area of moderately decreased tracer uptake involving the basal and mid inferolateral, mid and apical inferior and apical septal segments. Significant reversibility was noted in these regions at rest. FUNCTIONAL RESULTS (calculated via Gated SPECT) Stress Image LV EF (%): 72 Stress EDV (mL):93 TID: 1.08 Stress ESV (mL):26 FUNCTIONAL FINDINGS: Segmental wall motion analysis revealing no gross wall motion abnormalities IMPRESSIONS 1. Myocardial perfusion imaging revealing moderate area of reversible defect involving the inferior and inferolateral and apical regions suggesting ischemia predominantly in the distribution of the circumflex artery with some involvement of the right coronary artery and left anterior descending artery. 2. Normal LV ejection fraction of 72%. 3. LV wall motion analysis revealing no gross wall motion abnormalities. 4. Normal LV volume No similar previous studies are available for comparison Dr Rey Kimble MD FAC (Electronically Signed) Final Date: 25 January 2024 13:48 S
[2024-01-24] MEDS: regadenoson 0.4 Mg/5 ml Syringe IVP (12:06)
[2024-01-24 14:49] VITALS: BP 142/88; PULSE 90
== END 2024-01-24 09:44 | disposition home or self-care (01) ==
PROVIDERS: PCP Family Medicine; Visit Provider Internal Medicine Cardiovascular Disease
DX: Z98.61 Coronary angioplasty status (principal); R06.02 Shortness of breath
CPT/HCPCS: 36415; 78452; 93017; 96374; A9500; J2785

== ENCOUNTER → 2024-02-05 10:26 | Outpatient (BNVA) | payer MEDICARE, MEDICAID, SELFPAY | PROVIDERS: PCP Family Medicine; Visit Provider Nurse Practitioner Family | DX: I10 Essential (primary) hypertension (principal); R94.39 Abnormal result of other cardiovascular function study; R07.89 Other chest pain; R06.09 Other forms of dyspnea; I73.9 Peripheral vascular disease, unspecified | CPT/HCPCS: 36415; 80048; 83880; 85025; 85610; 86850; 86900; 99214 ==

== ENCOUNTER 2024-02-12 07:29 | Outpatient (CLI) | payer MEDICARE, MEDICAID, SELFPAY ==
[2024-02-12] VITALS (8 sets, daily range): BP systolic 172–187; BP diastolic 73–79; PULSE 62–72; RESP 12; TEMP 36.7–36.8; O2SAT 95–100; BMI 42.9
--- NOTE | 2024-02-12 07:00 | XACV_ITS ---
Exam Room: 2 Ht: 170 cm Wt: 124 kg BSA: 2.49 m2 Gender: Female : 1960 Any Known Allergies: Other Exam Priority: Routine Procedure(s): Procedure Description: Diagnostic procedure Procedure Description: PCI procedure Procedure Description: Left Heart Catheterization Procedure Description: Left ventriculography Procedure Description: Drug Eluting Coronary Stent Procedure Description: PTCA Procedure Description: Miscellaneous Procedure Description: ACT Procedure Description: Coronary Angiography Lamin BOOKER; Diagnostic Cath Status: Elective Diagnostic Findings * The left main is a medium caliber vessel with a 20% tapering narrowing distally. Minimal calcification was noted. * The left descending artery is a medium caliber vessel which was found to have mild to moderate diffuse calcification in the proximal and the mid segment. 20 to 30% diffuse irregular narrowing were noted in the proximal of the mid segment of the artery. No significant stenotic lesions. The first diagonal branch was found to have mild to moderate diffuse disease in the proximal segment. No significant stenotic lesions were noted. * The left circumflex artery is a medium caliber vessel which was found to have around 40 to 50% ostial narrowing. The first OM branch was found to have 40 to 50% diffuse narrowing. The distal circumflex trifurcates to give off the PDA branch. Mild diffuse disease was noted in the distal vessels. * The intermedius artery, high diagonal branch, was found to have 60 to 70% ostial stenosis. Mild diffuse disease was noted in the distal vessel. * The right coronary artery is a nondominant vessel which is was found to have mild to moderate diffuse disease in the mid and distal segments. PCI Status: Elective PCI Indication: Other Interventional Findings * IFR: After equalizing the distal and proximal pressure of IFR wire proximal to the lesion, proximal ramus intermedius lesion was crossed with IFR wire. Spot IFR was noted to be 0.89 which is abnormal and positive for hemodynamically significant ischemia. Pullback gradient was noted to be significant. We therefore decided to proceed with coronary intervention of ramus intermedius based upon the IFR abnormality.. * Successful PCI to ostial ramus intermedius. Lesion was prepared with 2.0 x 12mm MDT EUPHORA balloon, followed by deployment of CHRIS 2.25 x 15 mm stent posted at high ALEKSANDR of 12 mm. Stent was then post-dilated with serial dilatation of NC Euphora 2.5 x 12 at 12 ALEKSANDR in its entire length to ensure proper approximation. Excellent angiographic result with BENITA-3 flow was achieved. . Conclusions 1. 69-year-old white female with a history of hypertension, type 2 diabetes, dyslipidemia, obesity, presenting with complaints of exertional shortness of breath and chest tightness/heaviness. She had a Myocardial perfusion imaging which revealed a small to moderate area of reversible defect mostly involving the distribution of the circumflex artery. In view of the patient's ongoing symptoms and preop status, in order to further evaluate her coronary status, a cardiac catheterization was recommended. Patient underwent left heart catheterization with left and right coronary angiogram and LV angiogram today. The findings are as follows. 2. 1. Mild to moderate diffuse coronary calcification involving the proximal and mid LAD, proximal circumflex and the left main artery. Moderately severe ostial narrowing was noted in the intermedius branch artery. Right coronary artery was found to be nondominant. Mild to moderate diffuse disease was noted in the other vessels. Normal LV ejection fraction by LV angiogram. LVEDP of 18 mmHg. 3. I reviewed and discussed the cardiac catheterization data with Dr Portillo. Thought to be appropriate to consider. IFR of the intermedius artery ostial lesion. Consider PCI if it is appropriate. Recommendations * 1-Return to inpatient for close monitoring and routine cath care 2-Risk factor modification for secondary prevention 3-Statin and aspirin 81 mg life-long, if tolerated 4-Patient was pre-loaded with 600 mg of Plavix, continue Plavix 75mg p.o. daily for at least one year. We will assess at the end of one year again to continue if further or not 5-Continue optimal medical management 6-Follow up with Dr. Kimble in four weeks and your primary care in 10 days. Interventional RX Recommendation: PCI w/o planned CABG Diagnostic RX Recommendation: other cardiac therapy w/o CABG/PCI Ventriculography Ejection Fraction: 60.0 % LV EDP: 18 mmHg Left Ventriculography Findings: * The LV gram was performed in the AVENDAÑO projection. The LV cavity appeared to be normal size. LV ejection fraction was around 60%. LVEDP was 18 mmHg. No filling defects are noted. No significant mitral valve prolapse or mitral regurgitation. Pressures Phase:Rest AO : 182 / 75 ( 116 ) @ 10:36:00 AM 167 / 61 ( 103 ) @ 10:49:00 AM 169 / 62 ( 105 ) @ 10:49:00 AM 158 / 55 ( 90 ) @ 11:02:00 AM LV : 170 / -13 / 18 @ 10:48:00 AM 173 / -8 / 21 @ 10:49:00 AM 172 / -8 / 22 @ 10:49:00 AM Valves Phase:DefaultPhase AV : 5.0 @ 10:58:03 AM 5.0 @ 10:58:03 AM AV Mean Gradient: 9.0 @ 10:58:03 AM 9.0 @ 10:58:03 AM Clinical Evaluation EBL: 5mL-10mL Procedural Details Procedure Consent Obtained. Pre-Procedure Time Out. Identified patient by full name and date of as verbalized by the patient/guarantor. Does the consent match the physician's order: Yes. Accurate & Complete Informed Consent: Yes. Inpatient/Outpatient History & Physical on Chart: Yes. If H&P is completed, is and addenduem needed: No; If yes, is the addendum complete: N/A. Visualize and Verify Site with Patient/Guarantor: N/A. Relevant Radiology Images available: N/A. The risks, benefits, and alternatives of sedation and/or procedure were discussed by physician. The patient agrees to continue. Procedure started. [facility] Clinical Fraility Score: 3: Managing Well. Butting Saw Operator Indications: Pre-operative Evaluation. Correct patient, site and procedure confirmed by cath team. Current diagnosis: Pre-op clearance, Abnormal stress test. PERRLA. Strong, equal hand sr. consultant bilaterally. Lungs clear x 5 lobes. IV Site on Arrival: 20 gauge in the right anticubital. IV Fluids: 0.9% NaCl at KVO. 0 mL infused prior to cath lab radiology technician. Pre Procedural Pulses: bilateral radial was 3+. Pre Procedural Pulses: bilateral dorsalis pedis was 2+. Pre Procedural Pulses: bilateral posterior tibial was 1+. Oxygen started at 2liters/min via nasal canula. right radial was prepped with chloroprep then draped in the usual sterile fashion. right groin was prepped with chloroprep then draped in the usual sterile fashion. Baseline sample Acquired. HR: 61 BPM. Physician notified. Physician arrived. Admit Source: Out Patient. Physician scrubbed in. Immediate Pre-Procedure Time Out. Correct Patient: Yes; Correct Procedure: Yes; Correct Site: Yes; Correct Patient Position: Yes; Correct Supplies: Yes; Dried Flammable Prep: Yes; Blood Products Available: Yes;. Lidocaine 1% infiltrated to the right radial. An attempt to gain access to the right radial artery was unsuccessful. Manual pressure was held as needed to stop the bleeding. Unable to obtain radial access. MD attempting to gain access in the Femoral artery. Lidocaine 1% infiltrated to the right groin. An attempt to gain access to the right femoral artery was unsuccessful. Manual pressure was held as needed to stop the bleeding. Arterial access obtained. A 5 brit[place] virgin islander JL4 catheter in over standard wire. Wire out. Multiple views taken of left coronary artery. Catheter removed over the standard wire. A 5 brit[place] islander JR4 catheter in over wire. Multiple views taken of right coronary artery. Catheter removed over the standard wire. A 5 brit[place] islander Angled Pig catheter in over wire. Wire out. EDP Sample taken: LV 170/-14,18; HR: 64 BPM; SpO2: 97%. LV gram performed in AVENDA[place]O @ 10 mL/second for a total of 30 mL. EDP Sample taken: LV 173/-9,21; HR: 65 BPM; SpO2: 97%. Pullback taken: LV 172/-9,22; AO 167/61(103); Mean: 9mmHg, Peak to Peak: 5mmHg, SEP: 18sec/min; HR: 65 BPM; SpO2: 96%. Catheter removed over the standard wire. Dr. Portillo called to lab to review cine films. Side port of sheath attached to Normal Saline flush at KVO to maintain patency. Physician scrubbed out. Dr. Portillo scrubbed in to perform iFR. 6 british virgin islander XB 3.5 guide catheter was inserted over the wire. Wire out. iFR pressure wire advanced through guide catheter. Normalized in aorta. iFR wire advanced past lesion in ostial ramus intermedius artery. IFR of ostial ramus 0.87 mmhg. iFR wire redirected to ostial circumflex. Wire advanced across lesion. iFR ostial circumflex 1.18. ACT drawn. Results 350 seconds. Therapeutic limits - pre-heparin administration 90-150 seconds and monitoring heparin during a vascular procedure >250 seconds. BMW guidewire was advanced through the guide catheter to lesion in the ostial ramus intermedius. Guidewire advanced across lesion. Balloon inserted to lesion in the ostial ramus artery. Inflation number : 1 A AB MINI TREK 2.00X12 RX BALLOON was prepped and advanced across the Ramus , then inflated to 14 ALEKSANDR for 0:15 seconds. Balloon out. Stent inserted to lesion in the ostial ramus artery. Inflation Number : 2 A MANNIE R CHRIS 2.25X15 YASMIN -Lot Number# [id number] EXP 06-26-2024 was prepped and advanced across the Ramus. The stent was deployed at 12 ALEKSANDR for 0:15 seconds. Stent balloon out over wire. Results checked. Balloon inserted to lesion in the ostial ramus. Inflation number : 3 A T NC EUPHORA RX 2.38Q04DF BALLOON was prepped and advanced across the Ramus , then inflated to 8 ALEKSANDR for 0:17 seconds. Inflation number: 4 The MDT NC EUPHORA RX 2.14M11MD BALLOON was reinflated across the Ramus, to 10 ALEKSANDR for 0:16 seconds. Inflation number: 5 The T ANI EUPHORA RX 2.01J10RK BALLOON was reinflated across the Ramus, to 10 ALEKSANDR for 0:09 seconds. Balloon out. Results checked. BMW wire out. Results checked. ACT drawn. Results 342 seconds. Therapeutic limits - pre-heparin administration 90-150 seconds and monitoring heparin during a vascular procedure >250 seconds. Guide catheter out. A Right femoral angiogram was performed to determine safe placement of closure device. Lidocaine 1% infiltrated to the right groin. Post Procedure: Pulses reassessed and unchanged. PERRLA. Strong, equal hand sr. consultant bilaterally. No VTE prophylaxis required. Medication's Wasted: Nitro = 49.8 mg. Medication's Wasted: Heparin = 2500 units. Total IV fluids: 100 mL. A Angio-Seal VIP ([place]) was successful obtaining hemostatsis at the Right Femoral artery insertion site. LOT # [id number] EXP 08-28-2024. Post-op diagnosis: Significant stenosis of Ramus intermedius artery. Status post PCI placment of 1 stent. Complications: None. Estimated blood loss: 5mL-10mL. Responsiveness - Normal response to verbal stimuli; alert and oriented, PERRLA. Airway - Unaffected, no intervention required; spontaneous ventilation. Circulation: W/N/L, pulses unchanged. Nausea/Vomiting: No. Procedure completed. Patient transferred by bed to ICU. Vital chart was stopped. Access Site Site: Right Femoral artery Sheath Size: 6 Fr Hemostasis Method: Angio-Seal VIP ([place]) Hemostasis Success: Successful Procedure Medications Start: 9:10 AM Stop: 9:10 AM Medication: Versed Amount: 1 mg Route: I.V. Start: 9:10 AM Stop: 9:10 AM Medication: Fentanyl Amount: 50 mcg Route: I.V. Start: 9:14 AM Stop: 9:14 AM Medication: Versed Amount: 1 mg Route: I.V. Start: 9:18 AM Stop: 9:18 AM Medication: Fentanyl Amount: 25 mcg Route: I.V. Start: 9:26 AM Stop: 9:26 AM Medication: Fentanyl Amount: 25 mcg Route: I.V. Start: 9:26 AM Stop: 9:26 AM Medication: Versed Amount: 1 mg Route: I.V. Start: 9:30 AM Stop: 9:30 AM Medication: Versed Amount: 1 mg Route: I.V. Start: 9:35 AM Stop: 9:35 AM Medication: Heparin Amount: 1500 units Route: I.V. Start: 9:36 AM Stop: 9:36 AM Medication: Fentanyl Amount: 25 mcg Route: I.V. Start: 9:47 AM Stop: 9:47 AM Medication: Fentanyl Amount: 25 mcg Route: I.V. Start: 9:55 AM Stop: 9:55 AM Medication: Hydralazine Amount: 10 mg Start: 9:57 AM Stop: 9:57 AM Medication: Versed Amount: 1 mg Route: I.V. Start: 10:03 AM Stop: 10:03 AM Medication: Heparin Amount: 7000 units Route: I.V. Start: 10:07 AM Stop: 10:07 AM Medication: Fentanyl Amount: 25 mcg Route: I.V. Start: 10:17 AM Stop: 10:17 AM Medication: Versed Amount: 1 mg Route: I.V. Start: 10:21 AM Stop: 10:21 AM Medication: Plavix Amount: 600 mg Route: P.O. Start: 10:36 AM Stop: 10:36 AM Medication: Nitrogylcerin Amount: 200 mcg Route: I.C. I, the attending physician, have reviewed and verified all procedure medications. Yes, all medications given per verbal order History/Risk Factors Hypertension: Yes Dyslipidemia: Yes Peripheral Arterial Disease (PAD): No Myocardial Infarction ([place]): No Obesity: Yes Renal Disease: No Tobacco Use: Former Prior Interventions PCI: No CABG: No Valve Surgery: No Report Signatures Interventional Workflow Finalized by Sandra Portillo MD on 03/09/2024 11:07 PM Diagnostic Workflow Finalized by Dr Rey Kimble MD [facility] on 02/12/2024 04:58 PM
[2024-02-12] MEDS: aspirin 325 mg Tablet PO (07:50)
[2024-02-12] MEDS: diphenhydrAMINE 50 mg Capsule PO (07:50)
--- NOTE | 2024-02-12 08:34 | P.HP_ITS ---
Providers/Chief Complaint Primary Care Provider: Andrew Solitario MD Chief Complaint: R94.39 History of Present Illness Nikki Guadalupe is a 63 year old female with a history of hypertension, type 2 diabetes and dyslipidemia, presenting with complaints of exertional dyspnea and chest tightness. She is scheduled for an abnormal surgery. As part of the preop evaluation, she had a Myocardial perfusion imaging which was found to be abnormal. For further evaluation of her coronary status, a cardiac catheterization was recommended. The Perfusion scan report as mentioned below. 1. Myocardial perfusion imaging revealing moderate area of reversible defect involving the inferior and inferolateral and apical regions suggesting ischemia predominantly in the distribution of the circumflex artery with some involvement of the right coronary artery and left anterior descending artery. 2. Normal LV ejection fraction of 72%. 3. LV wall motion analysis revealing no gross wall motion abnormalities. 4. Normal LV volume No similar previous studies are available for comparison Review of Systems Narrative: CONSTITUTIONAL: No fever or chills. EYES: No blurring of vision or other visual disturbances lately. ENT: No hoarseness of voice, auditory disturbances or sore throat. CARDIOVASCULAR: As mentioned above. RESPIRATORY: Patient has significant dyspnea on exertion. GASTROINTESTINAL: No hematemesis or melena. GENITOURINARY: No dysuria or hematuria. INTEGUMENTARY: No skin rashes or history of skin cancer. NEURO: No transient ischemic attacks or amaurosis. PSYCHIATRIC: No history of psychosis or major depression. HEMATOLOGIC: No bleeding disorders or significant anemia. ENDOCRINE: No history of polyuria or polydipsia. MUSCULOSKELETAL: No recent joint pain or swelling. ALLERGY/IMMUNOLOGY: As mentioned above. Medications/Allergies Home Medications Medication Instructions Recorded Confirmed Last Taken Type carbamazepine 200 mg See Rx Instructions .Route .COMPLEX 12/24/20 02/11/24 02/11/24 History capsule,extended release [id number] insulin degludec 100 unit/mL (3 40 unit SUBCUT DAILY 12/24/20 02/11/24 02/11/24 History mL) subcutaneous pen (Tresiba FlexTouch U-100 insulin) insulin lispro 100 unit/mL 15 unit SUBCUT TID 12/24/20 02/11/24 02/11/24 History subcutaneous solution (Humalog U-100 Insulin) mirabegron 25 mg tablet,extended 25 mg PO DAILY 12/24/20 02/11/24 02/11/24 Histo ry release 24 hr (Myrbetriq) omeprazole 20 mg capsule,delayed 40 mg PO DAILY 12/24/20 02/11/24 02/11/24 History release phenytoin sodium extended 100 mg See Rx Instructions .Route .COMPLEX 12/24/20 02/11/24 02/11/24 History capsule (Dilantin Extended) valsartan 320 mg tablet 160 mg PO DAILY 12/24/20 02/11/24 02/12/24 06:00 History denosumab 60 mg/mL subcutaneous See Rx Instructions .Route .COMPLEX 01/19/21 02/11/24 02/11/24 History syringe (Prolia) Night Splint #1 ea 01/15/23 02/05/24 Unknown Rx sertraline 100 mg tablet 50 mg PO DAILY 05/15/23 02/11/24 02/11/24 History Diabetic Shoes with 3 pair of #1 ea 06/19/23 02/05/24 Unknown Rx custom accommodative insoles calcium 600 mg (as 1 tab PO DAILY 07/17/23 02/11/24 02/11/24 History carbonate)-vitamin D3 5 mcg (200 unit) tablet gabapentin 600 mg tablet 1,200 mg PO TID 07/17/23 02/11/24 02/11/24 History rosuvastatin 10 mg tablet 10 mg PO DAILY 07/17/23 02/11/24 02/11/24 History carvedilol 25 mg tablet 25 mg PO BID 90 days #180 tabs 12/26/23 02/11/24 02/12/24 06:00 Rx amlodipine 5 mg tablet 5 mg PO DAILY #30 tabs 01/23/24 02/11/24 02/12/24 06:00 Rx furosemide 20 mg tablet (Lasix) 20 mg PO DAILY #90 tabs 02/01/24 02/11/24 02/11/24 Rx potassium chloride 8 mEq 8 meq PO DAILY #90 caps 02/01/24 02/11/24 02/11/24 Rx capsule,extended release diclofenac sodium 1 % topical gel 2 g topical QID PRN Pain, Mild 02/11/24 02/11/24 02/11/24 History (Voltaren Arthritis Pain) meclizine 25 mg tablet 50 mg PO QID PRN dizziness 02/11/24 02/11/2402/11/24 06:00 History Allergies Allergy/AdvReac Type Severity Reaction Status Date / Time bupropion [From Wellbutrin] Allergy RASH Verified 02/12/24 08:15 clarithromycin [From Biaxin] Allergy RASH Verified 02/12/24 08:15 dexamethasone Allergy RASH Verified 02/12/24 08:15 gramicidin D Allergy RASH Verified 02/12/24 08:15 hydrocortisone Allergy RASH Verified 02/12/24 08:15 neomycin Allergy RASH Verified 02/12/24 08:15 [From Maxitrol (neomycin sulf)] polymyxin B Allergy RASH Verified 02/12/24 08:15 simvastatin Allergy RASH Verified 02/12/24 08:15 sulfadiazine Allergy RASH Verified 02/12/24 08:15 tetracycline Allergy RASH Verified 02/12/24 08:15 PFSH Acute PFSH: Family History Mother CAD (coronary artery disease) Brother CAD (coronary artery disease) Denies family history of Diabetes Social History Smoking and tobacco/nicotine status: former use of tobacco/nicotine Alcohol intake: never Vitals/I&O/Wt Last Vital Signs Temp 98.1 F 02/12/24 08:19 Pulse 66 02/12/24 08:19 Resp 12 02/12/24 08:19 BP 172/79 02/12/24 08:19 O2 Del Method Room Air 02/12/24 08:19 Weight last 48 hrs Weight 274 lb Physical Exam Narrative: GENERAL: The patient is alert and oriented times three. Not in any acute distress. Obese HEENT: No significant pallor, icterus or lymphadenopathy.Oral cavity: There are no mucous membrane lesions. NECK: Trachea appears to be central. No masses noted. No JVD or thyromegaly appreciated. RESPIRATORY: Chest is symmetrical. No intercostals muscle retraction or any accessory muscle activation. There is no chest wall tenderness. Breath sounds are heard bilaterally. No rales or rhonchi heard. No evidence of any consolidation. BREASTS: Deferred. HEART: The heart sounds are normal. No S3 or S4. No significant murmurs. No pericardial rub ABDOMEN: No vessel pulsations or distention. No tenderness. No organomegaly appreciated. Bowel sounds are normally heard. : Deferred. RECTAL: Deferred. LYMPHATIC: No lymphadenopathy noted in the neck. EXTREMITIES: No edema or cyanosis. No clubbing. MUSCULOSKELETAL: No acute joint deformities or swelling SKIN: There are no significant rashes or ecchymosis NEUROPSYCHIATRIC: The patient is alert and oriented x3. Appears to be in a good mood. No tremors or rigidity noted. A&P Assessment and plan (1) Abnormal cardiovascular stress test: The abnormal Myocardial perfusion imaging is suggestive of ischemia in the distribution of the left circumflex artery. In view of the patient's ongoing symptoms, in order to further evaluate the coronary status, she requires a cardiac catheterization. (2) Hyperlipemia, mixed: May continue on the current medications (3) Benign essential HTN: The blood pressure is currently elevated. May need to optimize the antihypertensive medications. (4) FRANKLIN (dyspnea on exertion): This could be multifactorial. Coronary ischemia is a consideration. (5) T2DM (type 2 diabetes mellitus): Qualifiers: Diabetes mellitus buttermilk drier operator insulin use: without buttermilk drier operator use Diabetes mellitus complication status: without complication Qualified Code(s): E11.9 - Type 2 diabetes mellitus without complications Plan Patient is scheduled for a cardiac catheterization today. The risk and benefits were discussed with the patient. The risk of bleeding, hematoma, vascular injury, myocardial infarction, myocardial perforation, malignant cardiac arrhythmias ,CVA, renal failure and other concomitant complications were explained in detail. Based on the angiogram findings, further recommendations will be made Attestations Medical Necessity Statement*: Patient may require an overnight stay for further management of her condition. Coding Level of Care Code 18508 Diagnoses Abnormal cardiovascular stress test R94.39 Hyperlipemia, mixed E78.2 Benign essential HTN I10 FRANKLIN (dyspnea on exertion) R06.09 Type 2 diabetes mellitus without complication, without long-term current use of insulin E11.9 Diabetes mellitus fpc insulin use: without buttermilk drier operator use Diabetes mellitus complication status: without complication
--- NOTE | 2024-02-12 08:44 | W.PM.OPSUD ---
Surgery/Procedure H&P Update DATE OF PROCEDURE: February 12, 2024 DATE H&P PERFORMED: 02/12/24 PREOP DIAGNOSIS: Suspected ASHD PRIMARY INDICATION FOR PROCEDURE: Patient is a chest tightness/dyspnea on exertion. Abnormal Myocardial perfusion imaging PLANNED PROCEDURE: Operation Date: 02/12/24 08:30 Proposed Procedures p Cardiac Catheterization(Left) - Rey Kimlbe MD PATIENT REASSESSED PRIOR TO SEDATION, WITH NO CHANGE NOTED: Yes PHYSICAL EXAM: alert, oriented x 3, clear to auscultation bilaterally and regular rate & rhythm AIRWAY EVAL/ANESTHESIA PLAN: normal airway, see other exam findings, ASA III, Monitored Anesthesia, Local Anesthesia, Risks, benefits & alternatives of sedation and/or procedure discussed and Patient agrees to continue as planned
[2024-02-12] MEDS: phenytoin ER 100 mg Capsule PO (11:35)
[2024-02-12] MEDS: insulin lispro 100 unit/1 mL 15 UNIT SUBCUT ×2 (11:36→18:00)
[2024-02-12] MEDS: carBAMazepine 200 mg Tablet PO (11:54)
[2024-02-12] MEDS: gabapentin 400 mg Capsule 1200 MG PO (15:06)
[2024-02-12] MEDS: carvedilol 25 mg Tablet PO (18:00)
[2024-02-12] MEDS: pantoprazole DR 40 mg Tablet PO (18:00)
[2024-02-12] MEDS: gabapentin 300 mg Capsule 600 MG PO (20:13)
[2024-02-12] MEDS: phenytoin ER 100 mg Capsule 200 MG PO (20:14)
[2024-02-12] MEDS: carBAMazepine 200 mg Tablet 400 MG PO (20:15)
--- NOTE | 2024-02-12 20:17 | PC.NURSE ---
checked patients glucose with dexcom monitor. Blood glucose was 214 at 2015
[2024-02-13] VITALS: BP 151/71; PULSE 63; RESP 18; O2SAT 95
[2024-02-13] MEDS: acetaminophen 325 mg Tablet 650 MG PO (03:52)
[2024-02-13 04:29] LABS: Basophils # 0.1 10^3/uL (0.0-0.1); Basophils % 0.7 %; Eosinophils # 0.1 10^3/uL (0.0-0.8); Eosinophils % 1.5 %; Hematocrit 36.1 % (36-47); Lymphocytes # 1.5 10^3/uL (0.8-4.8); Lymphocytes % 22.8 %; Mean Corpuscular HGB Conc 34.3 g/dL (30-55); Mean Corpuscular Hemoglobin 33.1 pg (27-33); Mean Corpuscular Volume 96.3 fl (85-98); Mean Platelet Volume 10.2 fL (7.4-10.4); Monocytes # 0.7 10^3/uL (0.2-0.9); Monocytes % 9.7 %; Neutrophils # 4.32 10^3/uL (1.8-7.7); Neutrophils % 64.9 %; Nucleated Red Blood Cells % 0 %; Platelet Count 164 10^3/cmm (157-399); Red Blood Count 3.75 10^6/uL (3.85-5.65); Red Cell Distribution Width 12.4 % (12.1-15.1); White Blood Count 6.67 10^3/uL (3.29-11.43)
[2024-02-13 04:40] VITALS: BP 153/68; PULSE 63; RESP 12; TEMP 37; O2SAT 97
[2024-02-13 04:45] LABS: Anion Gap 13.3 (5-19); Blood Urea Nitrogen 15 mg/dL (8-23); Calcium 8.3 mg/dL (8.5-10.5); Carbon Dioxide 28 mmol/L (22-29); Chloride 103 mmol/L (98-107); Creatinine Clr Calc Pharmacy 114.0171; Glomerular Filtration Rate 84.8 mL/min (90-130); Glucose 167 mg/dL (65-115); Osmolality Calculated 295 mOsm/kg (285-295); Potassium 4.3 mmol/L (3.5-5.1); Sodium 140 mmol/L (136-145)
[2024-02-13 06:00] VITALS: PULSE 64
[2024-02-13 06:39] LABS: Glucose Point of Care 220 mg/dL (70-110)
[2024-02-13 07:31] VITALS: BP 156/65; PULSE 61; RESP 13; TEMP 36.4; O2SAT 97
[2024-02-13] MEDS: insulin glargine 100 units/1 mL 34 UNIT SUBCUT (08:43)
[2024-02-13] MEDS: clopidogrel 75 mg Tablet PO (08:43)
[2024-02-13] MEDS: calcium carb-vit d 600mg/400unit 1 Tablet 1 EACH PO (08:43)
[2024-02-13] MEDS: atorvastatin 40 mg Tablet PO (08:43)
[2024-02-13] MEDS: carvedilol 25 mg Tablet PO (08:44)
[2024-02-13] MEDS: carBAMazepine 200 mg Tablet PO (08:44)
[2024-02-13] MEDS: sertraline 50 mg Tablet PO (08:44)
[2024-02-13] MEDS: phenytoin ER 100 mg Capsule PO (08:44)
[2024-02-13] MEDS: amlodipine 5 mg Tablet PO (08:44)
[2024-02-13] MEDS: FUROsemide 20 mg Tablet PO (08:44)
[2024-02-13] MEDS: pantoprazole DR 40 mg Tablet PO (08:44)
[2024-02-13] MEDS: gabapentin 300 mg Capsule 600 MG PO (08:44)
[2024-02-13] MEDS: insulin lispro 100 unit/1 mL 15 UNIT SUBCUT (08:44)
[2024-02-13] MEDS: losartan 50 mg Tablet PO (08:44)
--- NOTE | 2024-02-13 10:14 | PM.PN ---
Subjective Subjective: Patient is feeling okay. No chest pain or shortness of breath. No hematoma or bleeding from the right groin Medications: Medication Review Details: Current Medications Acetaminophen (Acetaminophen 325 Mg Tablet) 650 mg PO Q6H PRN PRN Reason: MILD PAIN Last Admin: 02/13/24 03:52 Dose: 650 mg Hydrocodone Bitart/Acetaminophen (Hydrocodone-Acetaminophen 5-325 Mg Tablet) 1 tab PO Q4H PRN PRN Reason: PAIN Al Hydrox/Mg Hydrox/Simethicone (Vvhk-Qcs-Mygfipawy-Jessica 30 Ml Udc) 30 ml PO Q15M PRN PRN Reason: INDIGESTION Alprazolam (Alprazolam 0.5 Mg Tablet) 0.25 mg PO TID PRN PRN Reason: ANXIETY Amlodipine Besylate (Amlodipine 5 Mg Tablet) 5 mg PO DAILY [facility] Last Admin: 02/13/24 08:44 Dose: 5 mg Atorvastatin Calcium (Atorvastatin 40 Mg Tablet) 40 mg PO DAILY [facility] Last Admin: 02/13/24 08:43 Dose: 40 mg Atropine Sulfate (Atropine 1 Mg/Ml Sdv 1 Ml) 0.5 mg IVP PRN PRN PRN Reason: Symptomatic bradycardia Calcium Carbonate (Calcium Carb-Vit D 600mg/400unit 1 Tablet) 1 each PO DAILY [facility] Last Admin: 02/13/24 08:43 Dose: 1 each Carbamazepine (Carbamazepine 200 Mg Tablet) 200 mg PO 0800,1200 [facility] Last Admin: 02/13/24 08:44 Dose: 200 mg Carbamazepine (Carbamazepine 200 Mg Tablet) 400 mg PO 1800 [facility] Last Admin: 02/12/24 20:15 Dose: 400 mg Carvedilol (Carvedilol 25 Mg Tablet) 25 mg PO BID [facility] Last Admin: 02/13/24 08:44 Dose: 25 mg Clopidogrel Bisulfate (Clopidogrel 75 Mg Tablet) 75 mg PO DAILY [facility] Last Admin: 02/13/24 08:43 Dose: 75 mg Diclofenac Sodium (Diclofenac 1% Topical Gel 100 Gm) 1 applic TOPICAL QID PRN PRN Reason: Pain, Mild Fentanyl (Fentanyl 50 Mcg/Ml Inj 2ml) 50 mcg IVP PRN PRN PRN Reason: PAIN Furosemide (Furosemide 20 Mg Tablet) 20 mg PO DAILY [facility] Last Admin: 02/13/24 08:44 Dose: 20 mg Gabapentin (Gabapentin 300 Mg Capsule) 600 mg PO TID [facility] Last Admin: 02/13/24 08:44 Dose: 600 mg Insulin Glargine (Insulin Glargine 100 Units/1 Ml) 34 unit SUBCUT DAILY [facility] Last Admin: 02/13/24 08:43 Dose: 34 unit Insulin Human Lispro (Insulin Lispro 100 Unit/1 Ml) 15 unit SUBCUT TIDWM [facility] Last Admin: 02/13/24 08:44 Dose: 15 unit Losartan Potassium (Losartan 50 Mg Tablet) 50 mg PO DAILY [facility] Last Admin: 02/13/24 08:44 Dose: 50 mg Magnesium Hydroxide (Magnesium Hydroxide 30 Ml Udc) 30 ml PO DAILY PRN PRN Reason: CONSTIPATION Meclizine HCl (Meclizine 25 Mg Tablet) 50 mg PO QID PRN PRN Reason: dizziness Naloxone HCl (Naloxone 0.4 Mg/Ml Sdv) 0.1 mg IVP Q2M PRN PRN Reason: RESPIRATORY RATE < 8/MIN Nitroglycerin (Nitroglycerin 0.4 Mg Sublingual Tablet) 0.4 mg SUBLINGUAL Q5M PRN PRN Reason: CHEST PAIN Pantoprazole Sodium (Pantoprazole Dr 40 Mg Tablet) 40 mg PO DAILY [facility] Last Admin: 02/13/24 08:44 Dose: 40 mg Phenytoin (Phenytoin Er 100 Mg Capsule) 100 mg PO 0800,1200 [facility] Last Admin: 02/13/24 08:44 Dose: 100 mg Phenytoin (Phenytoin Er 100 Mg Capsule) 200 mg PO 1800 [facility] Last Admin: 02/12/24 20:14 Dose: 200 mg Sertraline HCl (Sertraline 50 Mg Tablet) 50 mg PO DAILY [facility] Last Admin: 02/13/24 08:44 Dose: 50 mg Temazepam (Temazepam 15 Mg Capsule) 15 mg PO BEDTIME PRN PRN Reason: INSOMNIA Vitals/I&O/Wt Last Vital Signs Temp 97.6 F 02/13/24 07:31 Pulse 61 02/13/24 07:31 Resp 13 02/13/24 07:31 BP 156/65 02/13/24 07:31 Pulse Ox 97 02/13/24 07:31 O2 Del Method Room Air 02/13/24 07:31 O2 Flow Rate 2 02/12/24 11:30 02/12/24 02/13/24 02/13/24 22:59 06:59 14:59 Intake Total 480 / 480 360 / 360 Balance 480 / 480 360 / 360 Weight last 48 hrs Weight 274 lb Physical Exam Narrative: GENERAL: The patient is alert and oriented times three. Not in any acute distress. [] HEENT: No significant pallor, icterus or lymphadenopathy.Oral cavity: There are no mucous membrane lesions. NECK: Trachea appears to be central. No masses noted. No JVD or thyromegaly appreciated. RESPIRATORY: Chest is symmetrical. No intercostals muscle retraction or any accessory muscle activation. There is no chest wall tenderness. Breath sounds are heard bilaterally. No rales or rhonchi heard. No evidence of any consolidation. BREASTS: Deferred. HEART: The heart sounds are normal. No S3 or S4. No significant murmurs. No pericardial rub ABDOMEN: No vessel pulsations or distention. No tenderness. No organomegaly appreciated. Bowel sounds are normally heard. : Deferred. RECTAL: Deferred. LYMPHATIC: No lymphadenopathy noted in the neck. EXTREMITIES: No hematoma bleeding from the right groin MUSCULOSKELETAL: No acute joint deformities or swelling SKIN: There are no significant rashes or ecchymosis NEUROPSYCHIATRIC: The patient is alert and oriented x3. Appears to be in a good mood. No tremors or rigidity noted. Data 02/13/24 04:16 02/13/24 04:16 Other Labs: Current Medications Laboratory Last Values WBC 6.67 10^3/uL (3.29-11.43) 02/13/24 04:16 RBC 3.75 10^6/uL (3.85-5.65) L 02/13/24 04:16 Hgb 12.40 g/dL (11.27-16.99) 02/13/24 04:16 Hct 36.1 % (36-47) 02/13/24 04:16 MCV 96.3 fl (85-98) 02/13/24 04:16 MCH 33.1 pg (27-33) H 02/13/24 04:16 MCHC 34.3 g/dL (30-55) 02/13/24 04:16 RDW 12.4 % (12.1-15.1) 02/13/24 04:16 Plt Count 164 10^3/cmm (157-399) 02/13/24 04:16 MPV 10.2 fL (7.4-10.4) 02/13/24 04:16 Neut % (Auto) 64.9 % 02/13/24 04:16 Lymph % (Auto) 22.8 % 02/13/24 04:16 Webb % (Auto) 9.7 % 02/13/24 04:16 Eos % (Auto) 1.5 % 02/13/24 04:16 Baso % (Auto) 0.7 % 02/13/24 04:16 Neut # (Auto) 4.32 10^3/uL (1.8-7.7) 02/13/24 04:16 Lymph # (Auto) 1.5 10^3/uL (0.8-4.8) 02/13/24 04:16 Webb # (Auto) 0.7 10^3/uL (0.2-0.9) 02/13/24 04:16 Eos # (Auto) 0.1 10^3/uL (0.0-0.8) 02/13/24 04:16 Baso # (Auto) 0.1 10^3/uL (0.0-0.1) 02/13/24 04:16 Nucleated RBC % (auto) 0 % 02/13/24 04:16 Nucleated RBCs # 0.0 /100WBC 02/13/24 04:16 Sodium 140 mmol/L (136-145) 02/13/24 04:16 Potassium 4.3 mmol/L (3.5-5.1) 02/13/24 04:16 Chloride 103 mmol/L (98-107) 02/13/24 04:16 Carbon Dioxide 28 mmol/L (22-29) 02/13/24 04:16 Anion Gap 13.3 (5-19) 02/13/24 04:16 BUN 15 mg/dL (8-23) 02/13/24 04:16 Creatinine 0.7 mg/dL (0.5-0.9) 02/13/24 04:16 GFR Calculation 84.8 mL/min (90-130) L 02/13/24 04:16 Glucose 167 mg/dL (65-115) H 02/13/24 04:16 POC Glucose 220 mg/dL (70-110) H 02/13/24 06:28 Calculated Osmolality 295 mOsm/kg (285-295) 02/13/24 04:16 Calcium 8.3 mg/dL (8.5-10.5) L 02/13/24 04:16 A&P Assessment and plan (1) Atherosclerosis of coronary artery of [place] heart without angina pectoris: Patient status post PCI, currently seems to be stable. Discussed about diet, medication and exercise Qualifiers: Coronary Disease-Associated Artery/Lesion type: [place] artery Qualified Code(s): I25.10 - Atherosclerotic heart disease of [place] coronary artery without angina pectoris (2) Benign essential HTN: Will increase the dose of the losartan to 100 mg for better control of blood pressure. (3) Dyslipidemia: Continue the current management. Plan Discharge home today. Appointment the [facility] in 1 week with the nurse practitioner. I may see her in the office as scheduled Attestations Medical Necessity Statement*: Discharge home today Coding Level of Care Code Acute Code for g Fwd Diagnoses Atherosclerosis of [place] coronary artery of [place] heart without angina pectoris I25.10 Coronary Disease-Associated Artery/Lesion type: [place] artery Benign essential HTN I10 Dyslipidemia E78.5
[2024-02-13 11:12] VITALS: BP 160/76; PULSE 65; RESP 22; TEMP 36.5; O2SAT 97
--- NOTE | 2024-02-13 13:14 | P.DS_ITS ---
Discharge Providers Date of Admission: 02/12/2024 Date of Discharge: February 13, 2024 Attending Provider at Admission: MD Rey Chavez MD Attending Provider at Discharge: Rey Kimble MD Primary Care Provider: Andrew Solitario MD Diagnoses at Discharge Discharge Diagnosis (1) Atherosclerotic heart disease [place] coronary artery w/angina pectoris: Status: Acute Qualifiers: [place] vs. transplanted heart: [place] heart Qualified Code(s): I25.119 - Atherosclerotic heart disease of [place] coronary artery with unspecified angina pectoris (2) Benign essential HTN: Status: Acute (3) Dyslipidemia: Status: Acute (4) Hyperlipemia, mixed: Status: Acute Reason for Visit Reason for Visit: R94.39 Brief History: Nikki Guadalupe is a 63 year old female with a history of hypertension, type 2 diabetes and dyslipidemia, presented with complaints of exertional dyspnea and chest tightness. She is scheduled for an abnormal surgery. As part of the preop evaluation, she had a Myocardial perfusion imaging which was found to be abnormal. For further evaluation of her coronary status, a cardiac catheterization was performed. The Perfusion scan report as mentioned below. 1. Myocardial perfusion imaging reveali ng moderate area of reversible defect involving the inferior and inferolateral and apical regions suggesting ischemia predominantly in the distribution of the circumflex artery with some involvement of the right coronary artery and left anterior descending artery. 2. Normal LV ejection fraction of 72%. 3. LV wall motion analysis revealing no gross wall motion abnormalities. 4. Normal LV volume No similar previous studies are available for comparison Hospital Course Hospital Course Patient underwent a left heart cardiac catheterization in which a stent was placed in Patient tolerated procedure well w/o copmlications. Blood pressure has ran high throughout stay. This has been an issue in the past. She was asked to increase her home valsartan dose to 320 daily and keep a blood pressure log. She will f/u in the clinic in about 1 week. She will need DAPT for at least one year. Physical Exam Narrative: General: No apparent distress, healthy appearing, well nourished Neck: No carotid bruit bilaterally Muskuloskeletal: Full ROM Lymphatic: no lymphedema noted Respiratory: Normal respiratory effort, clear to auscultation bilaterally throughout all lung hobbs, no use of accessory muscles Cardio: No JVD, regular rate, regular rhythm, S1 S2 normal, no murmurs, peripheral pulses 2+ throughout Extremities: Full ROM, normal, normal capillary refill, no cyanosis or edema Neuro: Alert and oriented x4, no focal motor deficits Psych: Affect normal, denies suicidal ideation, mental status grossly normal Skin: Radial side and femoral site clean dry intact no hematoma present Discharge Data Studies Completed and Pending Pending at discharge Category Date Time Status ELECTRICIAN LOCOMOTIVE request for service Routine Exams 02/12/24 07:00 Taken Laboratory Results WBC 6.67 10^3/uL (3.29-11.43) 02/13/24 04:16 RBC 3.75 10^6/uL (3.85-5.65) L 02/13/24 04:16 Hgb 12.40 g/dL (11.27-16.99) 02/13/24 04:16 Hct 36.1 % (36-47) 02/13/24 04:16 MCV 96.3 fl (85-98) 02/13/24 04:16 MCH 33.1 pg (27-33) H 02/13/24 04:16 MCHC 34.3 g/dL (30-55) 02/13/24 04:16 RDW 12.4 % (12.1-15.1) 02/13/24 04:16 Plt Count 164 10^3/cmm (157-399) 02/13/24 04:16 MPV 10.2 fL (7.4-10.4) 02/13/24 04:16 Neut % (Auto) 64.9 % 02/13/24 04:16 Lymph % (Auto) 22.8 % 02/13/24 04:16 [place] % (Auto) 9.7 % 02/13/24 04:16 Eos % (Auto) 1.5 % 02/13/24 04:16 Baso % (Auto) 0.7 % 02/13/24 04:16 Neut # (Auto) 4.32 10^3/uL (1.8-7.7) 02/13/24 04:16 Lymph # (Auto) 1.5 10^3/uL (0.8-4.8) 02/13/24 04:16 [place] # (Auto) 0.7 10^3/uL (0.2-0.9) 02/13/24 04:16 Eos # (Auto) 0.1 10^3/uL (0.0-0.8) 02/13/24 04:16 Baso # (Auto) 0.1 10^3/uL (0.0-0.1) 02/13/24 04:16 Nucleated RBC % (auto) 0 % 02/13/24 04:16 Nucleated RBCs # 0.0 /100WBC 02/13/24 04:16 Sodium 140 mmol/L (136-145) 02/13/24 04:16 Potassium 4.3 mmol/L (3.5-5.1) 02/13/24 04:16 Chloride 103 mmol/L (98-107) 02/13/24 04:16 Carbon Dioxide 28 mmol/L (22-29) 02/13/24 04:16 Anion Gap 13.3 (5-19) 02/13/24 04:16 BUN 15 mg/dL (8-23) 02/13/24 04:16 Creatinine 0.7 mg/dL (0.5-0.9) 02/13/24 04:16 GFR Calculation 84.8 mL/min (90-130) L 02/13/24 04:16 Glucose 167 mg/dL (65-115) H 02/13/24 04:16 POC Glucose 220 mg/dL (70-110) H 02/13/24 06:28 Calculated Osmolality 295 mOsm/kg (285-295) 02/13/24 04:16 Calcium 8.3 mg/dL (8.5-10.5) L 02/13/24 04:16 Vitals Last Vital Signs Temp 97.7 F 02/13/24 11:12 Pulse 65 02/13/24 11:12 Resp 22 H 02/13/24 11:12 BP 160/76 02/13/24 11:12 Pulse Ox 97 02/13/24 11:12 O2 Del Method Room Air 02/13/24 11:12 O2 Flow Rate 2 02/12/24 11:30 Discharge Plan Discharge Patient Disposition: Home Prescriptions: New clopidogrel 75 mg Tablet 75 mg PO DAILY Qty: 90 0RF aspirin [Aspirin Childrens] 81 mg tablet,chewable 81 mg PO DAILY Qty: 90 3RF Continued Prolia 60 mg/mL syringe See Rx Instructions .ROUTE .COMPLEX Patient Comments: twice a year Rx Instructions: 60 mg subcutaneously every 6 months Tresiba FlexTouch U-100 100 unit/mL (3 mL) insulin pen 40 unit SUBCUT DAILY insulin lispro [Humalog U-100 Insulin] 100 unit/mL solution 15 unit SUBCUT TID phenytoin sodium extended [Dilantin Extended] 100 mg capsule See Rx Instructions .ROUTE .COMPLEX Rx Instructions: 1 cap am, 2 cap noon, 2 cap pm carbamazepine 200 mg capsule, ER multiphase 12 hr See Rx Instructions .ROUTE .COMPLEX Rx Instructions: Take 1 tablet by mouth in am, 1 tablet at noon, and 2 tablets in pm valsartan 320 mg tablet 160 mg PO DAILY Myrbetriq 25 mg tablet extended release 24 hr 25 mg PO DAILY omeprazole 20 mg capsule,delayed release(DR/EC) 40 mg PO DAILY (DME) Night Splint See Rx Instructions .Route .MEDSUPPLY Qty: 1 0RF Rx Instructions: As directed sertraline 100 mg tablet 50 mg PO DAILY carvedilol 25 mg tablet 25 mg PO BID 90 Days Qty: 180 3RF Rx Instructions: must administer with a meal/food (DME) Diabetic Shoes with 3 pair of custom accommodative insoles See Rx Instructions .Route .MEDSUPPLY Qty: 1 0RF Rx Instructions: As directed by [facility] amlodipine 5 mg tablet 5 mg PO DAILY Qty: 30 5RF furosemide [Lasix] 20 mg tablet 20 mg PO DAILY Qty: 90 3RF potassium chloride 8 mEq capsule, extended release 8 meq PO DAILY Qty: 90 3RF gabapentin 600 mg tablet 1,200 mg PO TID calcium carbonate-vitamin D3 600 mg-5 mcg (200 unit) Tablet 1 tab PO DAILY rosuvastatin 10 mg tablet 10 mg PO DAILY meclizine 25 mg tablet 50 mg PO QID PRN (Reason: dizziness) diclofenac sodium [Voltaren Arthritis Pain] 1 % gel 2 g topical QID PRN (Reason: Pain, Mild) Rx Instructions: apply to single elbow, wrist or hand; for hand includes palm/fingers/back of hand Discharge Orders: Discharge Order (Routine); Ordered 02/13/24 Ordered By: Rey Kimble Referrals: Andrew Solitario MD [Primary Care Provider] - 02/19/24 1:00 pm Faby Rosas FNP [Nurse Practitioner] - 11/12/24 2:00 pm Diet: Advance as tolerated and Cardiac Activity: Increase activity as tolerated Patient Instructions: Aspirin (By mouth), Clopidogrel (By mouth) (Plavix), C oronary Angioplasty (DC), Dyspnea (DC), Post Angiogram Home Care Instructions Activity Restrictions/Additional Instructions: Avoid any weight lifting or climbing stairs for the next 3 days. Take the medications as prescribed Continue the Plavix and aspirin as prescribed Appointment the [facility] to be seen by nurse practitioner next week Appointment with me in the office as scheduled Discharge Date/Time: 02/13/24 13:29 Discharge Attestations Time Spent in Discharge Care*: less than 30 min Quality Metrics Clinical Quality Measures [ No reported AMI, CVA or VTE this stay] Coding Level of Care Code Acute Code for Chg Fwd Diagnoses Atherosclerosis of [place] coronary artery of [place] heart with angina pectoris I25.119 [place] vs. transplanted heart: [place] heart Benign essential HTN I10 Dyslipidemia E78.5 Hyperlipemia, mixed E78.2
== END 2024-02-13 13:29 | disposition home or self-care (01) ==
LOC: CCL 07:33 → ICU 11:05 → CSU 02-13 07:40
PROVIDERS: Internal Medicine Cardiovascular Disease; PCP Family Medicine; Visit Provider Internal Medicine Cardiovascular Disease
DX: I25.119 Atherosclerotic heart disease of native coronary artery with unspecified angina pectoris (principal); I10 Essential (primary) hypertension; E78.2 Mixed hyperlipidemia; E11.9 Type 2 diabetes mellitus without complications; E66.9 Obesity, unspecified; Z68.41 Body mass index [BMI] 40.0-44.9, adult
CPT/HCPCS: 36415; 36416; 80048; 82962; 85025; 85347; 93458; 93571; 93572; 96372; 96374; 96375; 96376; 99152; 99153; C1725; C1760; C1769; C1874; C1887; C1894; C9600; G0269; J0360; J1644; J1815; J2250; J3010; J3490; J7030; Q0163; Q9967

== ENCOUNTER → 2024-02-26 13:35 | Outpatient (BNVA) | payer MEDICARE, MEDICAID, SELFPAY | PROVIDERS: PCP Family Medicine; Visit Provider Nurse Practitioner Family | DX: I25.10 Atherosclerotic heart disease of native coronary artery without angina pectoris (principal); J44.9 Chronic obstructive pulmonary disease, unspecified; I10 Essential (primary) hypertension; Z95.5 Presence of coronary angioplasty implant and graft | CPT/HCPCS: 99214 ==

== ENCOUNTER → 2024-09-09 10:39 | Outpatient (BNVA) | payer MEDICARE, MEDICAID, SELFPAY | PROVIDERS: PCP Family Medicine; Referring Provider Family Medicine; Visit Provider Psychiatry & Neurology Neurology | DX: G40.919 Epilepsy, unspecified, intractable, without status epilepticus (principal); E11.9 Type 2 diabetes mellitus without complications; R42 Dizziness and giddiness; Z79.899 Other long term (current) drug therapy | CPT/HCPCS: 99203 ==

== ENCOUNTER 2024-09-10 09:32 | Outpatient (CLI) | payer OTHER, MEDICAID, SELFPAY | END 2024-09-10 09:33 | disposition home or self-care (01) | LOC: LAB 09:37 | PROVIDERS: PCP Family Medicine; Visit Provider Psychiatry & Neurology Neurology | DX: Z79.899 Other long term (current) drug therapy (principal); G40.909 Epilepsy, unspecified, not intractable, without status epilepticus; E11.9 Type 2 diabetes mellitus without complications | CPT/HCPCS: 36415; 80061; 80177; 80185; 85025 ==

== ENCOUNTER 2024-09-22 11:34 | Outpatient (CLI) | payer OTHER, MEDICAID, SELFPAY ==
[2024-09-22 12:32] LABS: Phenytoin Dilantin 22.6 ug/mL (10-20)
[2024-09-23 10:44] LABS: Levetiracetam Immunoassy 33.6 mcg/mL (6.0-46.0)
== END 2024-09-22 11:35 | disposition home or self-care (01) ==
LOC: LAB 11:37
PROVIDERS: PCP Family Medicine; Visit Provider Psychiatry & Neurology Neurology
DX: G40.919 Epilepsy, unspecified, intractable, without status epilepticus (principal)
CPT/HCPCS: 36415; 80177; 80185

== ENCOUNTER → 2024-09-25 12:46 | Outpatient (BNVA) | payer OTHER, MEDICAID, SELFPAY | PROVIDERS: PCP Family Medicine; Referring Provider Psychiatry & Neurology Neurology; Visit Provider Psychiatry & Neurology Neurology | DX: G40.919 Epilepsy, unspecified, intractable, without status epilepticus (principal); G40.909 Epilepsy, unspecified, not intractable, without status epilepticus | CPT/HCPCS: 95816 ==

== ENCOUNTER 2025-01-26 11:05 | Emergency (ER) | payer OTHER, MEDICAID, SELFPAY ==
[2025-01-26] VITALS (7 sets, daily range): BP systolic 114–134; BP diastolic 59–69; PULSE 71–80; RESP 16–17; TEMP 36.2; O2SAT 97–99; BMI 39.6
--- NOTE | 2025-01-26 11:14 | W.ED.GIBLEED ---
HPI - GI Bleed General: Chief complaint: GI Bleed Stated complaint: rectal bleeding; dizzy Time Seen by Provider: 01/26/25 11:08 History of Present Illness: 64-year-old female with a history of coronary artery disease status post stents on Plavix, seizure disorder, obesity, hypertension, hyperlipidemia, diabetes, Who presents emergency room by ambulance with black stools and lightheadedness. No nausea or vomiting. No abdominal pain. She is on Plavix but no other anticoagulation. No chest pain. No altered mental status. No fevers. Related Data Home Medications ?Medication ?Instructions ?Recorded ?Confirmed insulin degludec 100 unit/mL (3 40 unit SUBCUT DAILY 12/24/20 10/28/24 mL) subcutaneous pen (Tresiba FlexTouch U-100 insulin) insulin lispro 100 unit/mL 15 unit SUBCUT TID 12/24/20 10/28/24 subcutaneous solution (Humalog U-100 Insulin) mirabegron 25 mg tablet,extended 25 mg PO DAILY 12/24/20 10/28/24 release 24 hr (Myrbetriq) omeprazole 20 mg capsule,delayed 40 mg PO DAILY 12/24/20 10/28/24 release valsartan 320 mg tablet 160 mg PO DAILY 12/24/20 10/28/24 denosumab 60 mg/mL subcutaneous See Rx Instructions .Route .COMPLEX 01/19/21 10/28/24 syringe (Prolia) sertraline 100 mg tablet 50 mg PO DAILY 05/15/23 10/28/24 calcium 600 mg (as 1 tab PO DAILY 07/17/23 10/28/24 carbonate)-vitamin D3 5 mcg (200 unit) tablet rosuvastatin 10 mg tablet 10 mg PO DAILY 07/17/23 10/28/24 diazepam 10 mg tablet 10 mg PO TID 09/09/24 10/28/24 Previous Rx's ?Medication ?Instructions ?Recorded Night Splint #1 ea 01/15/23 Diabetic Shoes with 3 pair of #1 ea 06/19/23 custom accommodative insoles furosemide 20 mg tablet (Lasix) 20 mg PO DAILY #90 tabs 02/01/24 potassium chloride 8 mEq 8 meq PO DAILY #90 caps 02/01/24 capsule,extended release aspirin 81 mg chewable tablet 81 mg PO DAILY #90 tabs 10/30/24 (Aspirin Childrens) amlodipine 5 mg tablet 10 mg (2 x 5 mg) PO DAILY #180 tabs 02/19/24 clopidogrel 75 mg tablet See Rx Instructions .Route 03/05/24 .COMPLEX #90 tabs levetiracetam 500 mg tablet See Rx Instructions PO BID #90 tabs 09/11/24 phenytoin 50 mg chewable tablet See Rx Instructions PO DAILY #30 09/11/24 (Dilantin Infatabs) tabs phenytoin sodium extended 100 mg See Rx Instructions .Route 09/11/24 capsule (Dilantin Extended) .COMPLEX #120 caps carvedilol 25 mg tablet See Rx Instructions .Route 01/19/25 .COMPLEX #180 tabs Allergies Allergy/AdvReac Type Severity Reaction Status Date / Time bupropion (From Wellbutrin) Allergy RASH Verified 09/25/24 12:49 clarithromycin (From Biaxin) Allergy RASH Verified 09/25/24 12:49 dexamethasone Allergy RASH Verified 09/25/24 12:49 gramicidin D Allergy RASH Verified 09/25/24 12:49 hydrocortisone Allergy RASH Verified 09/25/24 12:49 neomycin (From Maxitrol Allergy RASH Verified 09/25/24 12:49 (neomycin sulf)) polymyxin B Allergy RASH Verified 09/25/24 12:49 simvastatin Allergy RASH Verified 09/25/24 12:49 sulfadiazine Allergy RASH Verified 09/25/24 12:49 tetracycline Allergy RASH Verified 09/25/24 12:49 Review of Systems Narrative: Constitutional symptoms: Negative except as documented in HPI. Skin symptoms: Negative except as documented in HPI. Eye symptoms: Negative except as documented in HPI. ENMT symptoms: Negative except as documented in HPI. Respiratory symptoms: Negative except as documented in HPI. Cardiovascular symptoms: Negative except as documented in HPI. Gastrointestinal symptoms: Negative except as documented in HPI. Genitourinary symptoms: Negative except as documented in HPI. Musculoskeletal symptoms: Negative except as documented in HPI. Neurologic symptoms: Negative except as documented in HPI. Psychiatric symptoms: Negative except as documented in HPI. Endocrine symptoms: Negative except as documented in HPI. PFSH ED PFSH: Family History Mother CAD (coronary artery disease) Brother CAD (coronary artery disease) Denies family history of Diabetes Social History (Reviewed 10/28/24 @ 14:46 by Elsa Benoit Smoking and tobacco/nicotine status: former use of tobacco/nicotine Alcohol intake: never Physical Exam Narrative: EXAM NARRATIVE: General: Alert, no acute distress. Skin: Warm, dry. Head: Normocephalic, atraumatic. Neck: Supple, trachea midline. Eye: Extraocular movements are intact. Ears, nose, mouth and throat: mucosa moist. Cardiovascular: Regular, Normal peripheral perfusion. Respiratory: Lungs are clear to auscultation, respirations are non-labored, breath sounds are equal, Symmetrical chest wall expansion. Gastrointestinal: Soft, Nontender, Non distended Musculoskeletal: Normal ROM, no deformity. Neurological: Alert and oriented, No focal neurological deficit observed. Psychiatric: Cooperative, appropriate mood & affect. Course Vital Signs: Vital signs: Vital Signs Temperature 97.2 F L 01/26/25 11:09 Pulse Rate 78 01/26/25 11:09 Respiratory Rate 17 01/26/25 11:09 Blood Pressure 121/63 01/26/25 11:54 Pulse Oximetry 98 01/26/25 11:54 Oxygen Delivery Me thod Room Air 01/26/25 11:54 MDM - GI Bleed Medical Decision Making Medical decision making: Differential diagnosis including but not limited to and based on the above HPI, review of systems and physical exam: In a patient with upper GI bleeding would have concern for upper gi bleed from varices or ulcer. Concern for anemia. Concern for liver disease. concern for anticoagulation. Orders placed to evaluate differential diagnosis based on the above differential, HPI and physical exam Lab Review: Laboratory results were reviewed and interpreted by myself the emergency room physician. Mild leukocytosis. Mild drop in her hemoglobin from 12.5-10.8 from a few months ago. This combined with an elevated BUN which could indicate absorption of blood in the upper GI tract the point that she likely is having a small upper GI bleed. Vitals are stable. I reviewed the patient's medical record. 64-year-old female with a history of coronary artery disease status post stents on Plavix, seizure disorder, obesity, hypertension, hyperlipidemia, diabetes. Reviewed hospital stay from about a year ago. She had stents at that time. She is followed in cardiology clinic in February of last year as well. Reexamination: Patient remained stable. No increased work of breathing. No altered mental status. No focal motor deficits. I discussed the findings with patient and I discussed admission with her. Consultation: I spoke with Dr. Luis who is telecommunications repairer for general surgery. He agrees to consultation with admission to the hospitalist service. Consultation: I spoke with Dr. Lance who is on-call for the hospitalist service who agrees to admission. Assessment and plan: Upper GI bleeding Acute blood loss ?IV Protonix in the emergency room. -I discussed the patient with the hospitalist on-call who is admitting the patient. - Discussed findings and plan with patient. Answered any questions. - All laboratory values were reviewed and interpreted personally by myself, the ER physician - All imaging was reviewed and interpreted personally by myself, the ER physician. - Evaluation and treatment of this problem were appropriate in the emergency setting Lab Data 01/26/25 11:12 01/26/25 11:12 Laboratory Results WBC 10.48 10^3/uL (3.29-11.43) 01/26/25 11:12 RBC 3.24 10^6/uL (3.85-5.65) L 01/26/25 11:12 Hgb 10.80 g/dL (11.27-16.99) L 01/26/25 11:12 Hct 30.1 % (36-47) L 01/26/25 11:12 MCV 92.9 fl (85-98) 01/26/25 11:12 MCH 33.3 pg (27-33) H 01/26/25 11:12 MCHC 35.9 g/dL (30-55) 01/26/25 11:12 RDW 13.5 % (12.1-15.1) 01/26/25 11:12 Plt Count 202 10^3/cmm (157-399) 01/26/25 11:12 MPV 10.3 fL (7.4-10.4) 01/26/25 11:12 Neut % (Auto) 73.9 % 01/26/25 11:12 Lymph % (Auto) 17.3 % 01/26/25 11:12 [place] % (Auto) 7.3 % 01/26/25 11:12 Eos % (Auto) 0.0 % 01/26/25 11:12 Baso % (Auto) 0.7 % 01/26/25 11:12 Neut # (Auto) 7.75 10^3/uL (1.8-7.7) H 01/26/25 11:12 Lymph # (Auto) 1.8 10^3/uL (0.8-4.8) 01/26/25 11:12 [place] # (Auto) 0.8 10^3/uL (0.2-0.9) 01/26/25 11:12 Eos # (Auto) 0.0 10^3/uL (0.0-0.8) 01/26/25 11:12 Baso # (Auto) 0.1 10^3/uL (0.0-0.1) 01/26/25 11:12 Nucleated RBC % (auto) 0 % 01/26/25 11:12 Nucleated RBCs # 0.0 /100WBC 01/26/25 11:12 PT 14.30 SECONDS (12.1-14.9) 01/26/25 11:12 INR 1.04 (0.8-1.2) 01/26/25 11:12 APTT 26.5 SECONDS (23.9-36.7) 01/26/25 11:12 Sodium 137 mmol/L (136-145) 01/26/25 11:12 Potassium 4.5 mmol/L (3.5-5.1) 01/26/25 11:12 Chloride 101 mmol/L (98-107) 01/26/25 11:12 Carbon Dioxide 24 mmol/L (22-29) 01/26/25 11:12 Anion Gap 16.5 (5-19) 01/26/25 11:12 BUN 25 mg/dL (8-23) H 01/26/25 11:12 Creatinine 0.7 mg/dL (0.5-0.9) 01/26/25 11:12 GFR Calculation 84.5 mL/min (90-130) L 01/26/25 11:12 Glucose 150 mg/dL (65-115) H 01/26/25 11:12 Calculated Osmolality 291 mOsm/kg (285-295) 01/26/25 11:12 Lactic Acid 1.9 mmol/L (0.5-2.2) 01/26/25 11:12 Calcium 8.5 mg/dL (8.5-10.5) 01/26/25 11:12 Total Bilirubin 0.3 mg/dL (0.15-1.2) 01/26/25 11:12 AST 12 U/L (0-32) 01/26/25 11:12 ALT 13 U/L (0-33) 01/26/25 11:12 Alkaline Phosphatase 97 U/L (35-105) 01/26/25 11:12 Total Protein 5.9 g/dL (6.6-8.7) L 01/26/25 11:12 Albumin 3.8 g/dL (3.5-5.2) 01/26/25 11:12 Globulin 2.1 g/dL (1.3-4.6) 01/26/25 11:12 No radiology studies performed this visit Discharge Plan Discharge Patient Disposition: Admitted As Inpatient Clinical Impression: Upper gastrointestinal hemorrhage Condition: Stable Coding Level of Care Code ED Shift Foreman for Taty Springer
[2025-01-26 11:20] LABS: Hematocrit 30.1 % (36-47); Hemoglobin 10.80 g/dL (11.27-16.99); Mean Corpuscular HGB Conc 35.9 g/dL (30-55); Mean Corpuscular Hemoglobin 33.3 pg (27-33); Mean Corpuscular Volume 92.9 fl (85-98); Nucleated Red Blood Cells % 0 %; Platelet Count 202 10^3/cmm (157-399); Red Blood Count 3.24 10^6/uL (3.85-5.65); White Blood Count 10.48 10^3/uL (3.29-11.43)
[2025-01-26] MEDS: pantoprazole 40 mg SDV 80 MG IVP (11:29)
[2025-01-26 11:40] LABS: INR 1.04 (0.8-1.2); Partial Thromboplastin Time 26.5 SECONDS (23.9-36.7); Prothrombin Time 14.30 SECONDS (12.1-14.9)
[2025-01-26 11:44] LABS: Lactic Sepsis W/Reflex 1.9 mmol/L (0.5-2.2)
[2025-01-26 11:47] LABS: Alanine Aminotransferase 13 U/L (0-33); Albumin Level 3.8 g/dL (3.5-5.2); Alkaline Phosphatase 97 U/L (35-105); Anion Gap 16.5 (5-19); Aspartate Amino Transferase 12 U/L (0-32); Blood Urea Nitrogen 25 mg/dL (8-23); Calcium 8.5 mg/dL (8.5-10.5); Carbon Dioxide 24 mmol/L (22-29); Chloride 101 mmol/L (98-107); Creatinine Clr Calc Pharmacy 107.6076; Globulin 2.1 g/dL (1.3-4.6); Glucose 150 mg/dL (65-115); Osmolality Calculated 291 mOsm/kg (285-295); Potassium 4.5 mmol/L (3.5-5.1); Sodium 137 mmol/L (136-145); Total Protein 5.9 g/dL (6.6-8.7)
--- OUTSIDE RECORDS SUMMARY | 2025-01-26 11:47 | XMS_ITS | Encounter Summary ---
Author Organization [facility] Address [address] [place] [address] Care Team Providers Care Surgical Pathologist Name Role Phone Unavailable Primary Care Provider Unavailabl e Encounter Details Date Type Department Care Team (Latest Contact Info) Description 11/19/2001 Outpatient Historical [facility] [place] [address] [facility] [address] [place] [id number] Dave Bojorquez MD SCREENING MAL NEOP-COLON (Primary Dx) Social History Tobacco Use Types Packs/Day Years Used Date Smoking Tobacco: Never Assessed Comments Unknown Sex and Gender Information Value Date Recorded Sex Assigned at Not on file 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
--- OUTSIDE RECORDS SUMMARY | 2025-01-26 11:47 | XMS_ITS | Clinical Summary ---
Author Organization [facility] Address [address] 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
--- OUTSIDE RECORDS SUMMARY | 2025-01-26 11:47 | XMS_ITS | Encounter Summary ---
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
--- OUTSIDE RECORDS SUMMARY | 2025-01-26 11:47 | XMS_ITS | Encounter Summary ---
Author Organization [facility] Address [address] [place] [address] Care Team Providers Care Safety Admin Assistant Name Role Phone Unavailable Primary Care Provider Unavailabl e Encounter Details Date Type Department Care Team (Latest Contact Info) Description 07/19/2005 Outpatient Historical [facility] Dermatology- [facility] [place] [address] [place] [address] Alber Sosa MD NO ADDRESS ON FILE Lichenification (Primary Dx) Social History Tobacco Use Types Packs/Day Years Used Date Smoking Tobacco: Never Assessed Comments Unknown Sex and Gender Information Value Date Recorded Sex Assigned at Not on file 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
[2025-01-26 13:58] LABS: Estmated Average Glucose 180; Hemoglobin A1C 7.9 % (4.0-6.0)
[2025-01-26 14:06] LABS: Iron 99 ug/dL (37-145); Thyroid Stimulating Hormone 3.36 uIU/mL (0.27-4.20); Total Iron Binding Capacity 212 mcg/dl; Unsaturated Iron Binding 113 ug/dL (112-347); Vitamin B12 569 pg/mL (232-1245)
--- NOTE | 2025-01-26 14:27 | PM.CONSULT ---
Providers/Reason For Consult Consulting Physician/Specialty*: General Surgery Reason for Consult*: GI bleed Primary Care Provider: Andrew Solitario MD History of Present Illness History of Present Illness Nikki Guadalupe is a 64 year old female with extensive comorbidities who presents to the hospital with a suspected GI bleeding. Patient has been feeling weak and has noticed some dark bloody stool. She is taking antiplatelet therapy due to cardiac stents. I was consulting for possible upper GI bleeding. Review of Systems General: Reports: 10 or more systems reviewed and unremarkable except in HPI and below Medications/Allergies Home Medications ?Medication ?Instructions ?Recorded ?Confirmed ?Last Taken ?Type insulin degludec 100 unit/mL (3 40 unit SUBCUT DAILY 12/24/20 01/26/25 01/26/25 History mL) subcutaneous pen (Tresiba FlexTouch U-100 insulin) insulin lispro 100 unit/mL 15 unit SUBCUT TID 12/24/20 01/26/25 01/26/25 History subcutaneous solution (Humalog U-100 Insulin) mirabegron 25 mg tablet,extended 25 mg PO DAILY 12/24/20 01/26/25 02/11/24 History release 24 hr (Myrbetriq) omeprazole 20 mg capsule,delayed 20 mg PO DAILY 12/24/20 01/26/25 01/26/25 History release valsartan 320 mg tablet 160 mg PO DAILY 12/24/20 01/26/25 01/26/25 History denosumab 60 mg/mL subcutaneous See Rx Instructions .Route .COMPLEX 01/19/21 01/26/25 02/11/24 History syringe (Prolia) Night Splint #1 ea 01/15/23 01/26/25 Unknown Rx sertraline 100 mg tablet 50 mg PO DAILY 05/15/23 01/26/25 01/25/25 History Diabetic Shoes with 3 pair of #1 ea 06/19/23 01/26/25 Unknown Rx custom accommodative insoles calcium 600 mg (as 1 tab PO DAILY 07/17/23 01/26/25 01/26/25 History carbonate)-vitamin D3 5 mcg (200 unit) tablet rosuvastatin 10 mg tablet 10 mg PO BEDTIME 07/17/23 01/26/25 01/25/25 History aspirin 81 mg chewable tablet 81 mg PO DAILY #90 tabs 1001/26/25 01/26/25 Rx (Aspirin Childrens) diazepam 10 mg tablet 10 mg PO TID PRN Anxiety 09/09/24 01/26/25 Unknown History levetiracetam 500 mg tablet See Rx Instructions PO BID #90 tabs 09/11/24 01/26/25 01/26/25 Rx phenytoin 50 mg chewable tablet See Rx Instructions PO DAILY #30 09/11/24 01/26/25 01/25/25 Rx (Dilantin Infatabs) tabs phenytoin sodium extended 100 mg See Rx Instructions .Route 09/11/24 01/26/25 01/26/25 Rx capsule (Dilantin Extended) .COMPLEX #120 caps carvedilol 25 mg tablet See Rx Instructions .Route 01/19/25 01/26/25 01/26/25 Rx .COMPLEX #180 tabs albuterol sulfate 90 mcg/actuation 2 puff inhalation Q4H PRN 01/26/25 01/26/25 Unknown History aerosol inhaler Shortness Of Breath amlodipine 5 mg tablet 10 mg PO QAM 01/26/25 01/26/25 01/26/25 History clopidogrel 75 mg tablet 75 mg PO QAM 01/26/25 01/26/25 01/26/25 History docusate sodium 100 mg capsule 100 mg PO QAM 01/26/25 01/26/25 01/26/25 History (Colace) duloxetine 60 mg capsule,delayed 60 mg PO DAILY 01/26/25 01/26/25 01/26/25 History release furosemide 20 mg tablet (Lasix) 20 mg PO QAM 01/26/25 01/26/25 01/26/25 History potassium chloride 8 mEq 8 meq PO QAM 01/26/25 01/26/25 01/26/25 History capsule,extended release tamsulosin 0.4 mg capsule 0.4 mg PO DAILY 01/26/25 01/26/25 01/26/25 History Allergies Allergy/AdvReac Type Severity Reaction Status Date / Time bupropion (From Wellbutrin) Allergy RASH Verified 09/25/24 12:49 clarithromycin (From Biaxin) Allergy RASH Verified 09/25/24 12:49 dexamethasone Allergy RASH Verified 09/25/24 12:49 gramicidin D Allergy RASH Verified 09/25/24 12:49 hydrocortisone Allergy RASH Verified 09/25/24 12:49 neomycin (From Maxitrol Allergy RASH Verified 09/25/24 12:49 (neomycin sulf)) polymyxin B Allergy RASH Verified 09/25/24 12:49 simvastatin Allergy RASH Verified 09/25/24 12:49 sulfadiazine Allergy RASH Verified 09/25/24 12:49 tetracycline Allergy RASH Verified 09/25/24 12:49 Current Medications Generic Name Dose Route Start Last Admin Trade Name Freq PRN Reason Stop Dose Admin Sodium Chloride 1,000 mls @ 75 mls/hr 01/26/25 13:16 01/26/25 13:40 Sodium Chloride 0.9% IV 75 mls/hr .[id number] MIRNA Administration Pantoprazole Sodium 40 mg 01/26/25 13:16 01/26/25 13:35 Pantoprazole 40 Mg Sdv IVP Not Given Q12H MIRNA PFSH Acute PFSH: Family History Mother CAD (coronary artery disease) Brother CAD (coronary artery disease) Denies family history of Diabetes Social History Smoking and tobacco/nicotine status: former use of tobacco/nicotine Alcohol intake: never Vitals/I&O/Wt Last Vital Signs Temp 97.2 F L 01/26/25 11:09 Pulse 71 01/26/25 12:58 Resp 17 01/26/25 12:58 BP 134/69 01/26/25 13:10 Pulse Ox 99 01/26/25 13:10 O2 Del Method Room Air 01/26/25 13:10 Weight last 48 hrs Weight 253 lb Physical Exam GI: OTHER: Abdomen soft nontender nondistended Data 01/26/25 11:12 01/26/25 11:12 A&P Assessment and plan 1. Tubulovillous adenoma of colon: 2. Lower GI bleeding: Plan: Patient who presents with GI bleeding in the setting of current antiplatelet therapy. Initially we thought patient had an upper GI bleeding and the plan was to admit her for possible endoscopy in the morning. After further investigation by medical team it seems like this is most likely consistent with an episode of lower GI bleeding, patient has pictures of the recent bowel movements and appeared to be blood clots mixed with the stool and bright red blood. Indicating a possible lower GI source of bleeding. In addition to that patient has informants that she was diagnosed with multiple colonic polyps and was supposed to go to [place] to get them removed but she has not been able to follow-up with a specialist yet due to medical issues. In the setting I agree the patient should be evaluated by a GI physician and higher level of care as may require advanced polypectomy techniques as well as possible fulguration of the mucosa in the case of bleeding coming from 1 of these lesions. Patient shows understanding and is agreeable with the plan. The case has been discussed with the medical team and patient is stable for transfer at this time. PDMP PDMP Reviewed: Not Reviewed Coding Level of Care Code Acute Code for Chg Fwd Diagnoses Tubulovillous adenoma of colon D12.6 Lower GI bleeding K92.2
--- NOTE | 2025-01-26 14:48 | PM.CONSULT ---
Providers/Reason For Consult Consulting Physician/Specialty*: Hospitalist Reason for Consult*: GI bleed Requesting Physician: ER physician Primary Care Provider: Andrew Solitario MD History of Present Illness History of Present Illness Nikki Guadalupe is a 64 year old female with past medical history of CAD on Plavix, type 2 diabetes mellitus, seizure disorder, hypertension, tubulovillous adenoma of colon with significant family history of gastric and colonic cancer, Crohn's disease and family history of colonoscopy finding multiple large intestine 9 polyps with concerns for mass presents to the ER today because black tarry bowel movements with blood mixed in bowel movement since last night with occasional episodes of abdominal pain. Denies any nausea, vomiting, hematemesis. Hemoglobin seen in the ER is 10.5 with a blood pressure of 134 over 70 mmHg. Review of Systems General: Reports: 10 or more systems reviewed and unremarkable except in HPI and below Const: Denies: fever(s), chills, body aches, change in appetite, change in weight, malaise, night sweats, diaphoresis, change in sleep pattern, daytime sleepiness or snoring Eyes: Denies: change in vision, blurry vision, photophobia, eye discomfort or eye discharge ENMT: Denies: throat pain, enlarged tonsils, hoarseness, mouth pain, oral sores, dry mouth, tinnitus, nasal congestion or post nasal drip Card: Denies: chest pain, palpitations, irregular heart rhythm, edema, swelling of feet/ankles, lightheadedness, syncope, pre-syncope, dyspnea on exertion, orthopnea, leg pain with exertion or acrocyanosis Resp: Denies: dyspnea, productive cough, non-productive cough, wheezing, stridor, pain on inspiration, change in phlegm color, hemoptysis or chest congestion GI: Denies: abdominal pain, nausea, vomiting, hematemesis, coffee ground emesis, dysphagia, heartburn, diarrhea, constipation, bloating, GI cramping, change in bowel habits, pain on defecation, hematochezia or melena : Denies: flank pain, dysuria, urinary frequency, urinary urgency, urinary hesitancy, nocturia or hematuria Musc: Denies: neck pain, back pain, extremity pain, joint pain, joint swelling, joint redness, joint stiffness or limited range of motion Neuro: Denies: headache(s), numbness in extremities, weakness in extremities, sensory changes, lack of coordination, difficulty walking, frequent falls, dizziness, vertigo, confusion, Slurred speech present, difficulty communicating thoughts or seizure-like activity Psych: Denies: anxiety, depression, mood swings, panic attacks, hopelessness or irritability Endo: Denies: polyuria, polydipsia, tired all the time, cold intolerance, excessive sweating, flushing or heat intolerance Enrrique/Lymph: Denies: easy bruising or easy bleeding All/Imm: Denies: tongue swelling, facial swelling or acute wheezing Medications/Allergies Home Medications ?Medication ?Instructions ?Recorded ?Confirmed ?Last Taken ?Type insulin degludec 100 unit/mL (3 40 unit SUBCUT DAILY 12/24/20 01/26/25 01/26/25 History mL) subcutaneous pen (Tresiba FlexTouch U-100 insulin) insulin lispro 100 unit/mL 15 unit SUBCUT TID 12/24/20 01/26/25 01/26/25 History subcutaneous solution (Humalog U-100 Insulin) mirabegron 25 mg tablet,extended 25 mg PO DAILY 12/24/20 01/26/25 02/11/24 History release 24 hr (Myrbetriq) omeprazole 20 mg capsule,delayed 20 mg PO DAILY 12/24/20 01/26/25 01/26/25 History release valsartan 320 mg tablet 160 mg PO DAILY 12/24/20 01/26/25 01/26/25 History denosumab 60 mg/mL subcutaneous See Rx Instructions .Route .COMPLEX 01/19/21 01/26/25 02/11/24 History syringe (Prolia) Night Splint #1 ea 01/15/23 01/26/25 Unknown Rx sertraline 100 mg tablet 50 mg PO DAILY 05/15/23 01/26/25 01/25/25 History Diabetic Shoes with 3 pair of #1 ea 06/19/23 01/26/25 Unknown Rx custom accommodative insoles calcium 600 mg (as 1 tab PO DAILY 07/17/23 01/26/25 01/26/25 History carbonate)-vitamin D3 5 mcg (200 unit) tablet rosuvastatin 10 mg tablet 10 mg PO BEDTIME 07/17/23 01/26/25 01/25/25 History aspirin 81 mg chewable tablet 81 mg PO DAILY #90 tabs 02/13/24 01/26/25 01/26/25 Rx (Aspirin Childrens) diazepam 10 mg tablet 10 mg PO TID PRN Anxiety 09/09/24 01/26/25 Unknown History levetiracetam 500 mg tablet See Rx Instructions PO BID #90 tabs 09/11/24 01/26/25 01/26/25 Rx phenytoin 50 mg chewable tablet See Rx Instructions PO DAILY #30 09/11/24 01/26/25 01/25/25 Rx (Dilantin Infatabs) tabs phenytoin sodium extended 100 mg See Rx Instructions .Route 09/11/24 01/26/25 01/26/25 Rx capsule (Dilantin Extended) .COMPLEX #120 caps carvedilol 25 mg tablet See Rx Instructions .Route 01/19/25 01/26/25 01/26/25 Rx .COMPLEX #180 tabs albuterol sulfate 90 mcg/actuation 2 puff inhalation Q4H PRN 01/26/25 01/26/25 Unknown History aerosol inhaler Shortness Of Breath amlodipine 5 mg tablet 10 mg PO QAM 01/26/25 01/26/25 01/26/25 History clopidogrel 75 mg tablet 75 mg PO QAM 01/26/25 01/26/25 01/26/25 History docusate sodium 100 mg capsule 100 mg PO QAM 01/26/25 01/26/25 01/26/25 History (Colace) duloxetine 60 mg capsule,delayed 60 mg PO DAILY 01/26/25 01/26/25 01/26/25 History release furosemide 20 mg tablet (Lasix) 20 mg PO QAM 01/26/25 01/26/25 01/26/25 History potassium chloride 8 mEq 8 meq PO QAM 01/26/25 01/26/25 01/26/25 History capsule,extended release tamsulosin 0.4 mg capsule 0.4 mg PO DAILY 01/26/25 01/26/25 01/26/25 History Allergies Allergy/AdvReac Type Severity Reaction Status Date / Time bupropion (From Wellbutrin) Allergy RASH Verified 09/25/24 12:49 clarithromycin (From Biaxin) Allergy RASH Verified 09/25/24 12:49 dexamethasone Allergy RASH Verified 09/25/24 12:49 gramicidin D Allergy RASH Verified 09/25/24 12:49 hydrocortisone Allergy RASH Verified 09/25/24 12:49 neomycin (From Maxitrol Allergy RASH Verified 09/25/24 12:49 (neomycin sulf)) polymyxin B Allergy RASH Verified 09/25/24 12:49 simvastatin Allergy RASH Verified 09/25/24 12:49 sulfadiazine Allergy RASH Verified 09/25/24 12:49 tetracycline Allergy RASH Verified 09/25/24 12:49 Current Medications Generic Name Dose Route Start Last Admin Trade Name Mena PRN Reason Stop Dose Admin Sodium Chloride 1,000 mls @ 75 mls/hr 01/26/25 13:16 01/26/25 13:40 Sodium Chloride 0.9% IV 75 mls/hr .[id number] MIRNA Administration Pantoprazole Sodium 40 mg 01/26/25 13:16 01/26/25 13:35 Pantoprazole 40 Mg Sdv IVP Not Given Q12H MIRNA PFSH Acute PFSH: Medical History (Updated 01/26/25 @ 15:40 by Michelet Lance MD) Intractable epilepsy Seizure disorder Tubulovillous adenoma of colon Osteoporosis T2DM (type 2 diabetes mellitus) Dyslipidemia Peripheral arterial disease Atherosclerosis of coronary artery of [place] heart without angina pectoris Benign essential HTN Surgical History (Updated 01/26/25 @ 15:40 by Michelet Lance MD) Hx of hysterectomy Hx of neck surgery Hx of eye surgery Hx of colonoscopy with polypectomy 03/15/23 Hx of ankle fusion Hx of right knee surgery History of surgery on arm left arm Family History Mother CAD (coronary artery disease) Brother CAD (coronary artery disease) Denies family history of Diabetes Social History Smoking and tobacco/nicotine status: former use of tobacco/nicotine Alcohol intake: never Vitals/I&O/Wt Last Vital Signs Temp 97.2 F L 01/26/25 11:09 Pulse 80 01/26/25 14:34 Resp 16 01/26/25 14:34 BP 114/59 01/26/25 14:34 Pulse Ox 99 01/26/25 14:34 O2 Del Method Room Air 01/26/25 14:34 Weight last 48 hrs Weight 114.759 kg Physical Exam Narrative: General: No acute distress, AO x3 HEENT: PERRLA, pupils bilaterally equal and reactive Chest: Normal vesicular breath sounds, no added sounds, equal good air entry bilaterally CVS: S1-S2 regular, no murmurs, no tachycardia, no gallops, no rubs Abdomen: Soft, nontender, no organomegaly, bowel sounds present Neuro: No focal deficits, no facial deformity, AO x3, power 5/5 in all limbs Data 01/26/25 14:40 01/26/25 11:12 A&P Assessment and plan 1. Lower GI bleeding: With bright blood per rectum along with black tarry bowel movements. Hemoglobin down to 10.5. Baseline 12.4. Concern for tubulovillous adenoma of colon possibility of mass. Patient has been informed in the past for possible need of colectomy. Discussed in detail with surgical team medical concierge. Given patient being on Plavix, concern for possible mass and lower GI bleed this suggest patient to be transferred to a tertiary center where GI or colorectal surgery is available. Discussed in detail with patient at bedside regarding the need for possible transfer and she is agreeable. Check iron panel, vitamin B-12 and folate levels. Check hemoglobin every 8 hours. Target hemoglobin more than 8. Will transfuse accordingly. IV Protonix 40 twice daily, Carafate ACHS. Clear liquid diet. 2. Tubulovillous adenoma of colon: 3. Anemia: 4. Atherosclerotic heart disease [place] coronary artery w/angina pectoris: Continue with statin. Holding off on aspirin and Plavix. No active chest pain. 5. Benign essential HTN: Goal blood pressure less than 140/90 mmHg with mean over 65. Blood pressure so far stable. Continue with Coreg for now. Hold off on ARB 6. Dyslipidemia: 7. T2DM (type 2 diabetes mellitus): Insulin sliding scale. Check A1c. Plan: CODE STATUS: Discussed detail with him. Full code Clear liquid diet Protonix for PUD prophylaxis SCD for DVT prophylaxis PDMP PDMP Reviewed: Not Reviewed Consult Attestations Medical Necessity Statement: Patient is to be transferred to tertiary center for GI and colorectal surgery with concern for lower GI bleed due to colonic polyp/mass while patient is on Plavix for CAD post PCI Diagnoses Lower GI bleeding K92.2 Tubulovillous adenoma of colon D12.6 Anemia D64.9 Atherosclerotic heart disease [place] coronary artery w/angina pectoris I25.119 Benign essential HTN I10 Dyslipidemia E78.5 T2DM (type 2 diabetes mellitus) E11.9
[2025-01-26 14:50] LABS: Hematocrit 29.9 % (36-47); Hemoglobin 10.50 g/dL (11.27-16.99)
== END 2025-01-26 15:04 | disposition short-term general hospital (02) ==
LOC: ER 12:15 → CSU 13:18
PROVIDERS: Student in an Organized Health Care Education/Training Program; Emergency Provider Emergency Medicine; PCP Family Medicine
DX: K92.2 Gastrointestinal hemorrhage, unspecified (principal); Z87.891 Personal history of nicotine dependence
CPT/HCPCS: 36415; 80053; 82607; 83036; 83540; 83550; 83605; 84443; 85014; 85018; 85025; 85610; 85730; 86850; 86900; 96374; 99285; J2470; J7030

== ENCOUNTER → 2025-02-12 13:51 | Outpatient (BNVA) | payer OTHER, MEDICAID, SELFPAY | PROVIDERS: PCP Family Medicine; Visit Provider Internal Medicine Cardiovascular Disease | DX: I25.10 Atherosclerotic heart disease of native coronary artery without angina pectoris (principal); Z95.5 Presence of coronary angioplasty implant and graft; E11.9 Type 2 diabetes mellitus without complications; E78.5 Hyperlipidemia, unspecified; I10 Essential (primary) hypertension; Z87.891 Personal history of nicotine dependence; Z79.4 Long term (current) use of insulin | CPT/HCPCS: 99214 ==